=== PATIENT | male | born 1945 | race Caucasian/White ===

== ENCOUNTER 2022-12-26 09:11 | Inpatient (IN) | payer MEDICARE ==
[2022-12-26] MEDS ORDERED: MORPHINE SULFATE 2 MG/ML SYRINGE IVP STA (09:19)
[2022-12-26] MEDS ORDERED: KETOROLAC 15 MG/ML 1 ML VIAL IVP STA (09:19)
--- NOTE | 2022-12-26 09:25 | ED ---
Extremity Problem HPI - General Chief complaint: Extremity Problem,Nontraumatic Stated complaint: R Knee Pain Time Seen by Provider: 12/26/22 09:13 Source: patient, EMS, RN notes reviewed Mode of arrival: EMS Limitations: no limitations - History of Present Illness Initial comments: This is a 77-year-old male who presents to the emergency department for right knee pain. Patient states that this started around 5 days ago. Denies any known injuries. States that at this point he is unable to put pressure on leg due to the pain. He does have chronic swelling to the bilateral lower extremities, however he states that the swelling in the right leg is worse than normal. He is on Lasix and has been compliant with it. Reports a recent history of gout in the left great toe about a week ago, and states that it feels similar to the pain that he is having now. His brought with him the blood work obtained at [facility] about a week ago, and notable values are listed below. Denies any fevers, chills, sore throat, cough, dyspnea, chest pain, palpitations, abdominal pain, nausea, vomiting, diarrhea, back pain, or headaches. Lab work obtained at [facility] on 12/15/22: Uric acid - 16.0 WBC - 13.6 Hemoglobin - 6.3 Hematocrit - 20.4 Complaint: extremity pain Onset/Timin -: days(s) Location: right, lower extremity - Related Data Allergies Allergy/AdvReac Type Severity Reaction Status Date / Time No Known Allergies Allergy Verified 12/26/22 12:32 Review of Systems ROS Statement: Those systems with pertinent positive or pertinent negative responses have been documented in the HPI. ROS Other: All systems not noted in ROS Statement are negative. General Exam Limitations: no limitations General appearance: alert, in no apparent distress Head exam: Present: atraumatic, normocephalic, normal inspection Respiratory exam: Present: normal lung sounds bilaterally. Absent: respiratory distress, wheezes, rales, rhonchi, stridor Cardiovascular Exam: Present: regular rate, normal rhythm, normal heart sounds. Absent: systolic murmur, diastolic murmur, rubs, gallop, clicks Extremities exam: Present: other (Tenderness to palpation over the medial aspect of the right knee with 3+ pitting edema and mild erythema to the right lower extremity. 2+ DP and PT pulses. No calf tenderness.) Neurological exam: Present: alert, oriented X3, CN II-XII intact Psychiatric exam: Present: normal affect, normal mood Skin exam: Present: warm, dry, intact, normal color. Absent: rash Course Vital Signs 12/26/22 09:49 Temperature 98.9 F Pulse Rate 62 Respiratory 18 Rate Blood Pressure 125/58 O2 Sat by Pulse 92 L Oximetry Medical Decision Making - Medical Decision Making This is a 77-year-old male who presents to the emergency department for right knee pain. Was pt. sent in by a medical professional or institution? @ -No Did you speak to anyone other than the patient for history? @ -EMS provided the history with regards to when the pain started, that he is on Lasix, and has not had any injuries. His explained that he was at [facility] about a week ago for gout, she is unsure if he is receiving any active treatment. Did you review nursing and triage notes? @ -Yes, and I agree, it is accurate with regards to the patient's symptoms. Were old charts reviewed? @ -Lab work obtained at [facility] on 12/15/22: Uric acid - 16.0 WBC - 13.6 Hemoglobin - 6.3 Hematocrit - 20.4 Differential Diagnosis? @ -Differential Right Knee Pain: Fracture, dislocation, contusion, sprain, DVT, Sher's cyst, this is not meant to be an all-inclusive list. EKG interpreted by me (3pts min.)? @ -Not obtained X-rays interpreted by me (1pt min.)? @ -X-ray of the right knee obtained revealing a suprapatellar bursal fluid collection. CT interpreted by me (1pt min.)? @ -Not obtained U/S interpreted by me (1pt. min.)? @ -Duplex ultrasound of the right lower extremity obtained. My interpretation identifies no evidence of a DVT. What testing was considered but not performed? (CT, X-rays, U/S, labs)? Why? @ -None What meds were considered but not given? Why? @ -None Did you discuss the management of the patient with other professionals? @ -Yes, Dr. Silvestre, who accepts the patient for admission. Did you reconcile home meds? @ -No Was smoking cessation discussed for >3mins.? @ -No Was critical care preformed (if so, how long)? @ -No Were there social determinants of health that impacted care today? How? (Homelessness, low income, unemployed, alcoholism, drug addiction, transportation, low edu. Level, literacy, decrease access to med. care, senior care, rehab)? @ -No Was there de-escalation of care discussed even if they declined? (Discuss DNR or withdrawal of care, Hospice)? @ -No What co-morbidities impacted this encounter? (DM, HTN, Smoking, COPD, CAD, Cancer, CVA, Hep., AIDS, mental health diagnosis, sleep apnea, morbid obesity)? @ -CHF Was patient admitted / discharged? @ -Admitted. Lab work obtained revealing poor renal function, elevated CRP, and critically elevated uric acid with a level of 15.6. Leukocytosis and low hemoglobin are also present. Leukocytosis, low hemoglobin, and elevated uric acid are evident on blood work obtained at [facility] on 12/15, as listed in the HPI. However, renal function and CRP were not evaluated at that time. The patient was examined by both myself and Dr. Layton. He has notable tenderness to the right knee, however other than mild swelling, the knee is not particularly remarkable in terms of external irregularities. However, just distal to the knee there is diffuse swelling and erythema, suggestive of a possible cellulitis. X-ray of the right knee reveals a suprapatellar effusion, which may be the cause of his symptoms. Duplex ultrasound reveals no evidence of a DVT. Given that the patient is unable to ambulate, will admit patient to medicine for further evaluation. Orthopedics listed as consult regarding the knee pain and suprapatellar effusion. He was also started on vancomycin and cefepime for possible cellulitis. Consults placed for PT/OT as well. Undiagnosed new problem with uncertain prognosis? @ -None Drug Therapy requiring intensive monitoring for toxicity (Heparin, Nitro, Insu mark, Cardizem)? @ -None Were any procedures done? @ -None Diagnosis/symptom? @ -Right knee pain, suprapatellar effusion, cellulitis Acute, or Chronic, or Acute on Chronic? @ -Acute Uncomplicated (without systemic symptoms) or Complicated (systemic symptoms)? @ -Uncomplicated Side effects of treatment? @ -None Exacerbation, Progression, or Severe Exacerbation] @ -Not applicable Poses a threat to life or bodily function? @ -Yes, patient is unable to ambulate. This case was discussed in detail with the attending ED physician, Dr. Layton. Presentation, findings, and treatment plan discussed in detail as well. - Lab Data Result diagrams: 12/26/22 10:00 12/26/22 09:59 Lab Results 12/26/22 12/26/22 12/26/22 Range/Units 09:59 09:59 10:00 WBC 13.3 H (3.8-10.6) k/uL RBC 2.27 L (4.30-5.90) m/uL Hgb 7.4 L (13.0-17.5) gm/dL Hct 22.5 L (39.0-53.0) % MCV 99.3 (80.0-100.0) fL MCH 32.8 (25.0-35.0) pg MCHC 33.0 (31.0-37.0) g/dL RDW 19.2 H (11.5-15.5) % Plt Count 488 H (150-450) k/uL MPV 8.3 Neutrophils % (Manual) 61 % Band Neuts % (Manual) 7 % Lymphocytes % (Manual) 19 % Monocytes % (Manual) 5 % Metamyelocytes % 4 % Myelocytes % 5 % Neutrophils # (Manual) 9.00 H (1.3-7.7) k/uL Lymphocytes # (Manual) 2.53 (1.0-4.8) k/uL Monocytes # (Manual) 0.67 (0-1.0) k/uL Metamyelocytes # (Man) 0.53 H (0) k/uL Myelocytes # (Manual) 0.67 H (0) k/uL Nucleated RBCs 1 H (0-0) /100 WBC Manual Slide Review Performed Polychromasia Present Hypochromasia Slight Poikilocytosis Slight Anisocytosis Slight Macrocytosis Moderate Sodium 140 (137-145) mmol/L Potassium 4.2 (3.5-5.1) mmol/L Chloride 101 (98-107) mmol/L Carbon Dioxide 27 (22-30) mmol/L Anion Gap 12 mmol/L BUN 63 H (9-20) mg/dL Creatinine 2.13 H (0.66-1.25) mg/dL Est GFR (CKD-EPI)AfAm 34 (>60 ml/min/1.73 sqM) Est GFR (CKD-EPI)NonAf 29 (>60 ml/min/1.73 sqM) Glucose 111 H (74-99) mg/dL Plasma Lactic Acid Angel 0.9 (0.7-2.0) mmol/L Uric Acid 15.6 H* (3.5-8.5) mg/dL Calcium 8.6 (8.4-10.2) mg/dL Total Bilirubin 0.6 (0.2-1.3) mg/dL AST 35 (17-59) U/L ALT 33 (4-49) U/L Alkaline Phosphatase 101 (38-126) U/L C-Reactive Protein 6.2 H (<1.0) mg/dL Total Protein 6.8 (6.3-8.2) g/dL Albumin 4.0 (3.5-5.0) g/dL - Radiology Data Radiology results: report reviewed, image reviewed Disposition Clinical Impression: Cellulitis of right lower extremity, Right leg pain, Suprapatellar effusion of knee Disposition: ADMITTED IP TO THIS HOSP
--- NOTE | 2022-12-26 09:56 | XR ---
EXAMINATION TYPE: XR knee complete RT DATE OF EXAM: 12/26/2022 COMPARISON: NONE HISTORY: Pain TECHNIQUE: Three views are submitted. FINDINGS: Diffuse osteopenia with severe narrowing of the medial compartment of the knee joint. Spurring along the upper margin patella and there is a large suprapatellar bursal fluid collection.. Osseous struct ures are intact. No acute fracture seen. IMPRESSION: 1. Large suprapatellar bursal fluid collection. No definite acute fracture. 2. Severe diffuse osteopenia with severe osteoarthritis.
[2022-12-26 10:23] LABS: ALT 33 U/L (4-49); AST 35 U/L (17-59); African American GFR (CKD) 34 (>60 ml/min/1.73 sqM); Alkaline Phosphatase 101 U/L (38-126); Anion Gap 12 mmol/L; Blood Urea Nitrogen 63 mg/dL (9-20); Calcium 8.6 mg/dL (8.4-10.2); Carbon Dioxide 27 mmol/L (22-30); Chloride 101 mmol/L (98-107); Glucose 111 mg/dL (74-99); Non-African American GFR(CKD) 29 (>60 ml/min/1.73 sqM); Potassium 4.2 mmol/L (3.5-5.1); Sodium 140 mmol/L (137-145); Total Bilirubin 0.6 mg/dL (0.2-1.3); Total Protein 6.8 g/dL (6.3-8.2)
[2022-12-26 10:39] LABS: Uric Acid 15.6 mg/dL (3.5-8.5)
[2022-12-26 10:54] LABS: C Reactive Protein 6.2 mg/dL (<1.0)
[2022-12-26 11:07] LABS: Anisocytosis Slight; HCT 22.5 % (39.0-53.0); HGB 7.4 gm/dL (13.0-17.5); Hypochromasia Slight; MCH 32.8 pg (25.0-35.0); MCV 99.3 fL (80.0-100.0); Macrocytosis Moderate; Mean Platelet Volume 8.3; Platelet Count 488 k/uL (150-450); Poikilocytosis Slight; RBC 2.27 m/uL (4.30-5.90); RDW 19.2 % (11.5-15.5)
[2022-12-26] MEDS ORDERED: MORPHINE SULFATE 4 MG/ML SYRINGE IVP STA (11:08)
--- NOTE | 2022-12-26 11:22 | US ---
EXAMINATION TYPE: US venous doppler duplex LE RT DATE OF EXAM: 12/26/2022 9:20 AM COMPARISON: NONE CLINICAL INDICATION: Male, 77 years old with history of Right leg pain and swelling; Right lower leg swelling, patient on blood thinners SIDE PERFORMED: Right TECHNIQUE: The lower extremity deep venous system is examined utilizing real time linear array sonog sara with graded compression, doppler sonography and color-flow sonography. VESSELS IMAGED: Common Femoral Vein Deep Femoral Vein Greater Saphenous Vein * Femoral Vein Popliteal Vein Small Saphenous Vein * Proximal Calf Veins (* superficial vessels) Right Leg: Appears negative for DVT IMPRESSION: Grayscale, color doppler, spectral doppler imaging performed of the deep veins of the lo wer extremities. There is normal flow, compressibility, vascular waveforms.
[2022-12-26 11:28] LABS: Band Neutrophils % 7 %; Lymphocytes # (M) 2.53 k/uL (1.0-4.8); Metamyelocytes # (M) 0.53 k/uL (0); Metamyelocytes % 4 %; Monocytes # (M) 0.67 k/uL (0-1.0); Myelocytes # (M) 0.67 k/uL (0); Myelocytes % 5 %; Neutrophils % (M) 61 %; Nucleated Red Blood Cells 1 /100 WBC (0-0); Polychromasia Present; Total Cells Counted 200; WBC 13.3 k/uL (3.8-10.6)
[2022-12-26] MEDS ORDERED: CEFEPIME 1 GM in SODIUM CHLORIDE 0.9% 50 ML IVPB STA (11:45)
[2022-12-26] MEDS ORDERED: VANCOMYCIN IV PER PHARMACY 1 EACH MISC MISCELLANE PRN (11:45)
[2022-12-26] MEDS ORDERED: NALOXONE 0.4 MG/ML 1 ML VIAL IV PRN (11:46)
[2022-12-26] MEDS ORDERED: MORPHINE SULFATE 4 MG/ML SYRINGE IV PRN (11:46)
[2022-12-26] MEDS ORDERED: ONDANSETRON 4 MG/2 ML VIAL IVP PRN (11:46)
[2022-12-26] MEDS ORDERED: ACETAMINOPHEN TAB 325 MG TAB PO PRN (11:46)
[2022-12-26] MEDS ORDERED: VANCOMYCIN 1,250 MG in SODIUM CHLORIDE 0.9% 250 ML IVPB ONE (12:00)
[2022-12-26] MEDS ORDERED: DEXTROSE 50% SYRINGE 50 ML IVP PRN ×2 (17:43)
[2022-12-26] MEDS: SILDENAFIL 20 MG TAB PO SCH (18:45)
[2022-12-26] MEDS: MIDODRINE 5 MG TAB PO SCH (18:45)
[2022-12-26] MEDS: HEPARIN SODIUM,PORCINE/PF 5,000 UNIT/0.5 ML SYRINGE SQ SCH (18:45)
--- NOTE | 2022-12-26 18:45 | P.HPIM ---
History of Present Illness This is a pleasant 77 years old male with no significant past medical history Presents because of right knee pain. Patient cannot sleep walk or function with his significant pain which he states was 10/10 also made on admission non specific. Patient denies history of trauma. Patient denies any other specific symptoms, no chest pain dyspnea. No other symptom. Patient denies smoking alcohol or illicit drugs Vitals stable and afebrile Has leukocytosis 13.3, hemoglobin 7.4 Alk phos are normal. Creatinine 2.1 uric acid elevated at 15.6 Liver enzymes unremarkable. Venous Dopplers negative for DVT Right knee x-ray showing large suprapatellar bursa fluid collection. No definite acute fracture. Severe diffuse osteopenia with severe osteoarthritis Review of Systems Review of systems CONSTITUTIONAL: No fever, no malaise, no fatigue. HEENT: No recent visual problems or hearing problems. Denied any sore throat. CARDIOVASCULAR: No orthopnea, PND, no palpitations, no syncope. PULMONARY: No shortness of breath, no cough, no hemoptysis. GASTROINTESTINAL: No diarrhea, no nausea, no vomiting, no abdominal pain. Normoactive bowel sounds. NEUROLOGICAL: No headaches, no weakness, no numbness. HEMATOLOGICAL: Denies any bleeding or petechiae. GENITOURINARY: Denies any burning micturition, frequency, or urgency. MUSCULOSKELETAL/RHEUMATOLOGICAL: Denies any joint pain, swelling, or any muscle pain. ENDOCRINE: Denies any polyuria or polydipsia. Past Medical History History of Any Multi-Drug Resistant Organisms: None Reported Past Surgical History: Pacemaker Past Psychological History: No Psychological Hx Reported Smoking Status: Never smoker Past Alcohol Use History: None Reported Past Drug Use History: None Reported - Past Family History Mother Family Medical History: Cancer Father Family Medical History: Cancer Medications and Allergies Home Medications Medication Instructions Recorded Confirmed Type Amoxic-Pot Clav 500-125 mg 1 tab PO Q12HR 12/26/22 12/26/22 History [Augmentin 500-125 mg] Apixaban [Eliquis] 2.5 mg PO BID@1100,2300 12/26/22 12/26/22 History Dapagliflozin Propanediol [Farxiga] 10 mg PO DAILY 12/26/22 12/26/22 History Levothyroxine Sodium [Synthroid] 125 mcg PO QAM 12/26/22 12/26/22 History Melatonin 3 mg PO HS@0030 12/26/22 12/26/22 History Midodrine HCl [ProAmatine] 10 mg PO TID@0030,1000,1800 12/26/22 12/26/22 History Sildenafil Citrate 20 mg PO TID@0030,1000,1800 12/26/22 12/26/22 History Sotalol [Betapace] 40 mg PO BID@1100,2300 12/26/22 12/26/22 History Torsemide [Demadex] 40 mg PO BID@1100,2300 12/26/22 12/26/22 History traZODone HCL 100 mg PO HS@0030 12/26/22 12/26/22 History Allergies Allergy/AdvReac Type Severity Reaction Status Date / Time No Known Allergies Allergy Verified 12/26/22 12:32 Physical Exam Vitals: Vital Signs Temp Pulse Resp BP Pulse Ox 12/26/22 09:49 98.9 F 62 18 125/58 92 L Intake and Output 12/25/22 12/26/22 12/26/22 22:59 06:59 14:59 Other: Weight 64.41 kg GENERAL: The patient is alert and oriented x3, not in any acute distress. Well developed, well nourished. HEENT: Pupils are round and equally reacting to light. EOMI. No scleral icterus. No conjunctival pallor. Normocephalic, atraumatic. No pharyngeal erythema. No thyromegaly. CARDIOVASCULAR: S1 and S2 present. No murmurs, rubs, or gallops. PULMONARY: Chest is clear to auscultation, no wheezing , no crackles. ABDOMEN: Soft, nontender, nondistended, normoactive bowel sounds. No palpable organomegaly. MUSCULOSKELETAL: No joint swelling or deformity. -EXTREMITIES: No cyanosis, clubbing, or pedal edema. Tender Swelling and fullness above the right knee with no erythema. Right lower extremity is swollen warm and tender, but no erythema. NEUROLOGICAL: Gross neurological examination did not reveal any focal deficits. SKIN: No rashes. no petechiae. Results CBC & Chem 7: 12/26/22 10:00 12/26/22 09:59 Labs: Abnormal Lab Results - Last 24 Hours (Table) 12/26/22 12/26/22 Range/Units 09:59 10:00 WBC 13.3 H (3.8-10.6) k/uL RBC 2.27 L (4.30-5.90) m/uL Hgb 7.4 L (13.0-17.5) gm/dL Hct 22.5 L (39.0-53.0) % RDW 19.2 H (11.5-15.5) % Plt Count 488 H (150-450) k/uL Neutrophils # (Manual) 9.00 H (1.3-7.7) k/uL Metamyelocytes # (Man) 0.53 H (0) k/uL Myelocytes # (Manual) 0.67 H (0) k/uL Nucleated RBCs 1 H (0-0) /100 WBC BUN 63 H (9-20) mg/dL Creatinine 2.13 H (0.66-1.25) mg/dL Glucose 111 H (74-99) mg/dL Uric Acid 15.6 H* (3.5-8.5) mg/dL C-Reactive Protein 6.2 H (<1.0) mg/dL Assessment and Plan Assessment: Acute right knee suprapatellar bursitis possible right Lower extremity cellulitis Acute kidney injury, unknown baseline Elevated uric acid Normochromic normocytic anemia Plan: Continue with pain management Continue with antibiotic, currently on cefazolin and vancomycin Infectious disease and orthopedic team consult Follow-up culture result Check inflammatory markers Lexaprocalcitonin and CRP. Labs and medication were reviewed.. Continue same treatment. Continue with symptomatic treatment. Resume home medication. Monitor labs and vitals. DVT and GI prophylaxis. Further recommendations as per clinical course of the patient DVT prophylaxis: Subcutaneous heparin GI Prophylaxis: Pepcid PT/OT: Pending Prognosis is guarded
--- NOTE | 2022-12-26 19:55 | XR ---
EXAMINATION TYPE: XR chest 2V DATE OF EXAM: 12/26/2022 7:27 PM COMPARISON: None TECHNIQUE: XR chest 2V Frontal and lateral views of the chest. CLINICAL INDICATION:Male, 77 years old with history of hypoxia; FINDINGS: Lungs/Pleura: Low lung volumes are present. There is no evidence of pleural effusion, focal consolida tion, or pneumothorax. Pulmonary vascularity: Unremarkable. Heart/mediastinum: Cardiomediastinal silhouette is enlarged and stable. Two lead cardiac conduction d evice overlying the left hemithorax with lead tips projecting over the right ventricle and right atri um. Musculoskeletal: No acute osseous pathology. IMPRESSION: Low lung volumes with a generalized hazy appearance which could represent atelectasis versus pulmonar y edema correlate with serum BNP.
[2022-12-26] MEDS: INSULIN ASPART (NovoLOG) 100 UNIT/ML VIAL SQ SCH (20:54)
[2022-12-26] MEDS: SOTALOL 80 MG TAB PO SCH (20:57)
[2022-12-26] MEDS ORDERED: FAMOTIDINE 20 MG/2 ML VIAL IV SCH (21:00)
[2022-12-26] MEDS: HYDROcodone/APAP 5-325MG 1 EACH TAB PO PRN (21:05)
--- NOTE | 2022-12-26 22:59 | P.CONS ---
History of Present Illness - Reason for Consult Consult date: 12/26/22 - History of Present Illness Patient is a 77-year-old male with a past medical history significant for arrhythmia s/p pacemaker placement presenting to the hospital for evaluation of increasing pain to the right knee area patient denies any history of any trauma, patient described the pain to be sharp almost 10 out of 10 in severity with no significant radiation also have some swelling redness to the right foot and ankle area patient denies any fever or any chills with the symptoms the patient has been evaluated by the ER physician on arrival to the ER the patient was afebrile and no fever has been recorded subsequently patient did have a white count of 13.3 with a left shift he did have elevated BUN and creatinine uric acid 15.6 CRP 6.2 Pro-Alfonzo 0.18 patient did have a x-ray of the knee large suprapatellar bursa. Fluid collection no definite acute fracture severe diffuse osteopenia with severe osteoarthritis lower extremity Doppler was negative for DVT the patient was started on vancomycin, Ortho has been consulted for possible aspirate infectious was consulted concern for right lower extremity cellulitis Past Medical History Past Medical History: Atrial Fibrillation, Blood Disorder, Coronary Artery Disease (CAD), Cancer, Heart Failure, Osteoarthritis (OA), Renal Disease, Thyroid Disorder Additional Past Medical History / Comment(s): chemo[facility]radiation 2018 [facility] essential thrombocytopenia History of Any Multi-Drug Resistant Organisms: None Reported Past Surgical History: Heart Catheterization, Pacemaker Additional Past Surgical History / Comment(s): 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 Past Anesthesia/Blood Transfusion Reactions: No Reported Reaction Type of Cardiac Device: Permanent Pacemaker Device Placement Date:: 05/2022 Past Psychological History: No Psychological Hx Reported Smoking Status: Former smoker Past Alcohol Use History: Occasional Past Drug Use History: None Reported - Past Family History Mother Family Medical History: Cancer Father Family Medical History: Cancer Medications and Allergies Home Medications Medication Instructions Recorded Confirmed Type Amoxic-Pot Clav 500-125 mg 1 tab PO Q12HR 12/26/22 12/26/22 History [Augmentin 500-125 mg] Apixaban [Eliquis] 2.5 mg PO BID@1100,2300 12/26/22 12/26/22 History Dapagliflozin Propanediol [Farxiga] 10 mg PO DAILY 12/26/22 12/26/22 History Levothyroxine Sodium [Synthroid] 125 mcg PO QAM 12/26/22 12/26/22 History Melatonin 3 mg PO HS@0030 12/26/22 12/26/22 History Midodrine HCl [ProAmatine] 10 mg PO TID@0030,1000,1800 12/26/22 12/26/22 History Sildenafil Citrate 20 mg PO TID@0030,1000,1800 12/26/22 12/26/22 History Sotalol [Betapace] 40 mg PO BID@1100,2300 12/26/22 12/26/22 History Torsemide [Demadex] 40 mg PO BID@1100,2300 12/26/22 12/26/22 History traZODone HCL 100 mg PO HS@0030 12/26/22 12/26/22 History Allergies Allergy/AdvReac Type Severity Reaction Status Date / Time No Known Allergies Allergy Verified 12/26/22 12:32 Physical Exam Vitals: Vital Signs Temp Pulse Resp BP Pulse Ox 12/26/22 09:49 98.9 F 62 18 125/58 92 L Intake and Output 12/26/22 12/26/22 12/26/22 06:59 14:59 22:59 Intake Total 540 Output Total 200 Balance 340 Intake: Intake, IV Titration 300 Amount Cefepime 1 gm In Sodium 50 Chloride 0.9% 50 ml @ 100 mls/hr IVPB ONCE STA Rx# :[id number] Vancomycin 1,250 mg In 250 Sodium Chloride 0.9% 250 ml @ 125 mls/hr IVPB ONCE ONE Rx#:[id number] Oral 240 Output: Urine 200 Other: Weight 64.41 kg 64.41 kg Results CBC & Chem 7: 12/26/22 10:00 12/26/22 09:59 Labs: Abnormal Lab Results - Last 24 Hours (Table) 12/26/22 12/26/22 12/26/22 Range/Units 09:49 09:59 10:00 WBC 13.3 H (3.8-10.6) k/uL RBC 2.27 L (4.30-5.90) m/uL Hgb 7.4 L (13.0-17.5) gm/dL Hct 22.5 L (39.0-53.0) % RDW 19.2 H (11.5-15.5) % Plt Count 488 H (150-450) k/uL Neutrophils # (Manual) 9.00 H (1.3-7.7) k/uL Metamyelocytes # (Man) 0.53 H (0) k/uL Myelocytes # (Manual) 0.67 H (0) k/uL Nucleated RBCs 1 H (0-0) /100 WBC BUN 63 H (9-20) mg/dL Creatinine 2.13 H (0.66-1.25) mg/dL Glucose 111 H (74-99) mg/dL Uric Acid 15.6 H* (3.5-8.5) mg/dL C-Reactive Protein 6.2 H (<1.0) mg/dL Procalcitonin 0.18 H (0.02-0.09) ng/mL Assessment and Plan Plan: 1patient was in the hospital increasing pain to the right knee this patient also with a right foot ankle area swelling and minimal redness concerning for cellulitis and possible bursitis questionably septic patient not running any fever however he did have mild elevated white count, we will need to cover for the gram-positive skin phillip to the leg pathogen 2patient did have renal insufficiency and high risk for nephrotoxicity from vancomycin 3discontinue vancomycin 4we will start patient on cefazolin 2 g every 8 hours 5Ace wrap to the leg to keep the swelling down We will follow on clinical condition and cultures to further adjust medication if needed Thank you for this consultation we will follow the patient along with you Dictation was produced using [employer] dictation software. please excuse any grammatical, word or spelling errors. Time with Patient: Greater than 30
[2022-12-27] MEDS: predniSONE 10 MG TAB PO SCH ×2 (00:01→08:42)
[2022-12-27] MEDS: HEPARIN SODIUM,PORCINE/PF 5,000 UNIT/0.5 ML SYRINGE SQ SCH ×2 (00:01→08:35)
[2022-12-27] MEDS: MIDODRINE 5 MG TAB PO SCH ×4 (00:01→23:59)
[2022-12-27] MEDS: SILDENAFIL 20 MG TAB PO SCH ×4 (00:01→23:59)
[2022-12-27] MEDS: traZODone HCL 100 MG TAB PO SCH ×2 (00:01→23:59)
[2022-12-27] MEDS: MELATONIN 3 MG TABLET PO SCH ×2 (00:01→23:59)
[2022-12-27] MEDS: HYDROcodone/APAP 5-325MG 1 EACH TAB PO PRN ×3 (04:17→20:11)
[2022-12-27] MEDS: LEVOTHYROXINE 125 MCG TAB PO SCH (05:57)
[2022-12-27] MEDS: INSULIN ASPART (NovoLOG) 100 UNIT/ML VIAL SQ SCH ×4 (05:58→21:19)
[2022-12-27] MEDS: SOTALOL 80 MG TAB PO SCH ×2 (08:35→20:02)
[2022-12-27] MEDS: DAPAGLIFLOZIN PROPANEDIOL 10 MG TABLET PO SCH (08:37)
--- NOTE | 2022-12-27 11:09 | CA ---
Transthoracic Echo Report Name: Arjun Olmedo Age: 77 Gender: M : 1945 Exam Date: 12/27/2022 07:50 Exam Location: [facility] Ht (in): 74 Wt (lb): 142 Ordering Physician: Pal Silvestre MD Attending/Referring Phys: [id number], Nirm[employer] Tiffany Renee, [facility] Procedure CPT: Indications: Leg edema Cardiac Hx: Technical Quality: Good Contrast 1: Total Dose (mL): Contrast 2: Total Dose (mL): MEASUREMENTS (Male / Female) Normal Values 2D ECHO LV Diastolic Diameter PLAX 5.1 cm 4.2 - 5.9 / 3.9 - 5.3 cm LV Systolic Diameter PLAX 2.9 cm IVS Diastolic Thickness 0.8 cm 0.6 - 1.0 / 0.6 - 0.9 cm LVPW Diastolic Thickness 0.9 cm 0.6 - 1.0 / 0.6 - 0.9 cm LV Relative Wall Thickness 0.3 RV Internal Dim ED PLAX 4.5 cm LA Systolic Diameter LX 4.5 cm 3.0 - 4.0 / 2.7 - 3.8 cm LV Diastolic Volume MOD 4C 98.9 cm??? LV Systolic Volume MOD 4C 25.8 cm??? LV Ejection Fraction MOD 4C 73.9 % LV Cardiac Index MOD 4C 2732.8 cm???/min???m??? LV Diastolic Length 4C 7.8 cm LV Systolic Length 4C 6.0 cm LV Diastolic Volume MOD 2C 48.3 cm??? LV Systolic Volume MOD 2C 20.2 cm??? LV Ejection Fraction MOD 2C 58.3 % LV Cardiac Index MOD 2C 1055.2 cm???/min???m??? LV Diastolic Length 2C 7.4 cm LV Systolic Length 2C 5.9 cm LA Volume 67.6 cm??? 18 - 58 / 22 - 52 cm??? M-MODE Aortic Root Diameter MM 3.6 cm MV E Point Septal Separation 1.5 cm DOPPLER AV Peak Velocity 117.8 cm/s AV Peak Gradient 5.6 mmHg MV Area PHT 2.5 cm??? Mitral E Point Velocity 124.1 cm/s Mitral A Point Velocity 87.9 cm/s Mitral E to A Ratio 1.4 MV Deceleration Time 303.3 ms TR Peak Velocity 379.5 cm/s TR Peak Gradient 57.6 mmHg Right Ventricular Systolic Press 62.1 mmHg FINDINGS Left Ventricle Left ventricular ejection fraction is estimated at 55-60 %. Left ventricular cavity size normal. Left ventricular wall thickness normal.normal left ventricular wall motion. Right Ventricle Severe right ventricular dilatation. Severe pulmonary hypertension. Right Atrium Normal right atrial size. Left Atrium Mildly increased left atrial diameter. Mildly increased left atrial volume. Mitral Valve Mitral valve thickened. Mild mitral annular calcification. Mild mitral regurgitation Aortic Valve Trileaflet aortic valve. No aortic valve stenosis or regurgitation.aortic valve sclerosis. Tricuspid Valve Structurally normal tricuspid valve. Moderate tricuspid regurgitation. Pulmonic Valve Structurally normal pulmonic valve. Pericardium Small pericardial effusion at apex Aorta Normal size aortic root and proximal ascending aorta. CONCLUSIONS 1. Normal left ventricle size and systolic function 2. Mild mitral and moderate tricuspid regurgitation 3. Severe pulmonary hypertension 4. Small pericardial effusion Previewed by: Dr. Rachel Yoder MD (Electronically Signed) Final Date: 27 December 2022 11:09
[2022-12-27 11:37] LABS: Glucose,Whole Blood 153 mg/dL (70-110)
[2022-12-27] MEDS ORDERED: VANCOMYCIN 1,250 MG in SODIUM CHLORIDE 0.9% 250 ML IVPB ONE (12:00)
--- NOTE | 2022-12-27 12:04 | P.CNOR ---
History of Present Illness - HPI Consult date: 12/27/22 History of present illness: This is a 77-year-old male who is admitted for right knee pain. Orthopedics is consulted for further evaluation right knee pain. Patient is seen and evaluated at bedside today. Patient states that the pain started 5 days ago without any known injury. Patient states that he has had pain in the right knee before, but not this bad. Patient localizes pain to the medial aspect of the right knee. Patient states that he has pain with attempted motion of the right knee. Patient reports a recent episode of gout in the left toe. Patient's past medical history is significant for atrial fibrillation, thrombocytopenia, coronary artery disease, heart failure, osteoarthritis, renal disease, thyroid disorder and history of tongue cancer. Review of Systems See HPI. Past Medical History Past Medical History: Atrial Fibrillation, Blood Disorder, Coronary Artery Disease (CAD), Cancer, Heart Failure, Osteoarthritis (OA), Renal Disease, Thyro id Disorder Additional Past Medical History / Comment(s): chemo/radiation 2018 ([facility]), essential thrombocytopenia History of Any Multi-Drug Resistant Organisms: None Reported Past Surgical History: Heart Catheterization, Pacemaker Additional Past Surgical History / Comment(s): 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 Past Anesthesia/Blood Transfusion Reactions: No Reported Reaction Type of Cardiac Device: Permanent Pacemaker Device Placement Date:: 05/2022 Past Psychological History: No Psychological Hx Reported Smoking Status: Former smoker Past Alcohol Use History: Occasional Past Drug Use History: None Reported - Past Family History Mother Family Medical History: Cancer Father Family Medical History: Cancer Medications and Allergies Home Medications Medication Instructions Recorded Confirmed Type Amoxic-Pot Clav 500-125 mg 1 tab PO Q12HR 12/26/22 12/26/22 History [Augmentin 500-125 mg] Apixaban [Eliquis] 2.5 mg PO BID@1100,2300 12/26/22 12/26/22 History Dapagliflozin Propanediol [Farxiga] 10 mg PO DAILY 12/26/22 12/26/22 History Levothyroxine Sodium [Synthroid] 125 mcg PO QAM 12/26/22 12/26/22 History Melatonin 3 mg PO HS@0030 12/26/22 12/26/22 History Midodrine HCl [ProAmatine] 10 mg PO TID@0030,1000,1800 12/26/22 12/26/22 History Sildenafil Citrate 20 mg PO TID@0030,1000,1800 12/26/22 12/26/22 History Sotalol [Betapace] 40 mg PO BID@1100,2300 12/26/22 12/26/22 History Torsemide [Demadex] 40 mg PO BID@1100,2300 12/26/22 12/26/22 History traZODone HCL 100 mg PO HS@0030 12/26/22 12/26/22 History Allergies Allergy/AdvReac Type Severity Reaction Status Date / Time No Known Allergies Allergy Verified 12/26/22 12:32 Physical Examination On exam patient is resting comfortably in bed in no acute distress. Patient is alert and oriented 3. There is mild swelling of the right knee. There is no erythema or ecchymosis. Skin is intact. There is pain and limitation with active and passive range of motion of the right knee. There is moderate swelling of the right lower extremity. Sensation is intact. Calf is soft and nontender to palpation. Neurovascular status circulatory status are intact. Results X-rays of the right knee reveal severe thinning of the medial joint space. - Labs Labs: Abnormal Lab Results - Last 24 Hours (Table) 12/26/22 12/26/22 12/26/22 Range/Units 09:49 09:59 10:00 WBC 13.3 H (3.8-10.6) k/uL RBC 2.27 L (4.30-5.90) m/uL Hgb 7.4 L (13.0-17.5) gm/dL Hct 22.5 L (39.0-53.0) % RDW 19.2 H (11.5-15.5) % Plt Count 488 H (150-450) k/uL Neutrophils # (Manual) 9.00 H (1.3-7.7) k/uL Metamyelocytes # (Man) 0.53 H (0) k/uL Myelocytes # (Manual) 0.67 H (0) k/uL Nucleated RBCs 1 H (0-0) /100 WBC BUN 63 H (9-20) mg/dL Creatinine 2.13 H (0.66-1.25) mg/dL Glucose 111 H (74-99) mg/dL Uric Acid 15.6 H* (3.5-8.5) mg/dL C-Reactive Protein 6.2 H (<1.0) mg/dL Procalcitonin 0.18 H (0.02-0.09) ng/mL H & H 12/26/22 Range/Units 10:00 Hgb 7.4 L (13.0-17.5) gm/dL Hct 22.5 L (39.0-53.0) % Result Diagrams: 12/26/22 10:00 12/26/22 09:59 Assessment and Plan (1) Right knee pain Current Visit: Yes Status: Acute Code(s): M25.561 - PAIN IN RIGHT KNEE SNOMED Code(s): 4568283645 (2) Osteoarthritis of right knee Current Visit: Yes Status: Acute Code(s): M17.11 - UNILATERAL PRIMARY OSTEOARTHRITIS, RIGHT KNEE SNOMED Code(s): 340504024752007 Plan: 1. X-rays of the right knee are reviewed revealing severe osteoarthritis. These findings are consistent with the patient's symptoms of knee pain. Patient is afebrile and from exam of the right knee there is a very low suspicion for infection. 2. The patient may benefit from cortisone injection for the right knee. We will continue to follow.
--- NOTE | 2022-12-27 12:06 | P.PN ---
Subjective This is a pleasant 77 years old male with no significant past medical history Presents because of right knee pain. Patient cannot sleep walk or function with his significant pain which he states was 10/10 also made on admission nonspecific. Patient denies history of trauma. Patient denies any other specific symptoms, no chest pain dyspnea. No other symptom. Patient denies smoking alcohol or illicit drugs Vitals stable and afebrile Has leukocytosis 13.3, hemoglobin 7.4 Alk phos are normal. Creatinine 2.1 uric acid elevated at 15.6 Liver enzymes unremarkable. Venous Dopplers negative for DVT Right knee x-ray showing large suprapatellar bursa fluid collection. No definite acute fracture. Severe diffuse osteopenia with severe osteoarthritis 12/27/2022 Patient right knee pain is better today, right knee still looks swollen and somewhat warm. Right leg edema is improving. Suspicion for right lower extremity cellulitis is low. However patient To be covered with IV antibiotic There was suspicion of CHF. Her chest x-ray with elevated proBNP 45106. Echocardiogram showed preserved ejection fraction 55-60% with severe pulmonary hypertension. Patient currently off IV fluids. Uric acid was elevated significantly up to 15 suspicious for acute gout flareup because of elevated creatinine patient was started on prednisone 30 mg. Labs from today are pending. We will follow up creatinine, WBC, hemoglobin and uric acid which are still pending. Hemoglobin A1c and procalcitonin still pending as well. Review of systems CONSTITUTIONAL: No fever, no malaise, no fatigue. HEENT: No recent visual problems or hearing problems. Denied any sore throat. CARDIOVASCULAR: No orthopnea, PND, no palpitations, no syncope. PULMONARY: No shortness of breath, no cough, no hemoptysis. GASTROINTESTINAL: No diarrhea, no nausea, no vomiting, no abdominal pain. Normoactive bowel sounds. NEUROLOGICAL: No headaches, no weakness, no numbness. HEMATOLOGICAL: Denies any bleeding or petechiae. GENITOURINARY: Denies any burning micturition, frequency, or urgency. Active Medications Generic Name Dose Route Start Last Admin Trade Name Freq PRN Reason Stop Dose Admin Acetaminophen 650 mg 12/26/22 11:46 Acetaminophen Tab 325 Mg Tab PO Q6HR PRN Mild Pain or Fever > 100.5 Hydrocodone Bitart/Acetaminophen 1 each 12/26/22 11:46 12/27/22 08:34 Hydrocodone/Apap 5-325mg 1 Each Tab PO 1 each Q4HR PRN Administration Moderate Pain (Scale 4 to 6) Dapagliflozin 10 mg 12/27/22 09:00 12/27/22 08:37 Dapagliflozin Propanediol 10 Mg Tablet PO 10 mg DAILY [facility] Administration Dextrose/Water 25 ml 12/26/22 17:43 Dextrose 50% Syringe 50 Ml IVP PER PROTOCOL PRN Hypoglycemia Protocol Dextrose/Water 50 ml 12/26/22 17:43 Dextrose 50% Syringe 50 Ml IVP PER PROTOCOL PRN Hypoglycemia Protocol Famotidine 20 mg 12/26/22 21:00 12/26/22 20:58 Famotidine 20 Mg/2 Ml Vial IV Not Given HS [facility] Heparin Sodium (Porcine) 5,000 unit 12/26/22 18:00 12/27/22 08:35 Heparin Sodium,Porcine/Pf 5,000 Unit/0.5 Ml Syringe SQ 5,000 unit Q8HR [facility] Administration Cefazolin Sodium 2 gm/ Sodium 50 mls @ 100 mls/hr 12/27/22 00:00 12/27/22 08:34 Chloride IVPB 100 mls/hr Q8HR [facility] Administration Protocol Insulin Aspart 0 unit 12/26/22 21:00 12/27/22 11:27 Insulin Aspart (Novolog) 100 Unit/Ml Vial SQ 1 unit ACHS [facility] Administration Protocol Levothyroxine Sodium 125 mcg 12/27/22 06:30 12/27/22 05:57 Levothyroxine 125 Mcg Tab PO 125 mcg 0630 [facility] Administration Melatonin 3 mg 12/27/22 00:30 12/27/22 00:01 Melatonin 3 Mg Tablet PO 3 mg HS@0030 [facility] Administration Midodrine 10 mg 12/26/22 18:00 12/27/22 08:38 Midodrine 5 Mg Tab PO 10 mg TID@0030,1000,1800 [facility] Administration Naloxone HCl 0.2 mg 12/26/22 11:46 Naloxone 0.4 Mg/Ml 1 Ml Vial IV Q2M PRN Opioid Reversal Ondansetron HCl 4 mg 12/26/22 11:46 Ondansetron 4 Mg/2 Ml Vial IVP Q8HR PRN Nausea And Vomiting Prednisone 30 mg 12/26/22 23:45 12/27/22 08:42 Prednisone 10 Mg Tab PO 30 mg DAILY [facility] Administration Sildenafil Citrate 20 mg 12/26/22 18:00 12/27/22 08:38 Sildenafil 20 Mg Tab PO 20 mg TID@0030,1000,1800 [facility] Administration Sotalol HCl 40 mg 12/26/22 23:00 12/27/22 08:35 Sotalol 80 Mg Tab PO 40 mg BID@1100,2300 [facility] Administration Trazodone HCl 100 mg 12/27/22 00:30 12/27/22 00:01 Trazodone Hcl 100 Mg Tab PO 100 mg HS@0030 [facility] Administration Objective - Vital Signs Vital signs: Vital Signs Temp 97.8 F 12/27/22 07:26 Pulse 58 L 12/27/22 07:26 Resp 16 12/27/22 07:26 BP 92/54 12/27/22 07:26 Pulse Ox 94 L 12/27/22 07:26 FiO2 Intake & Output 12/26/22 12/27/22 12/27/22 18:59 06:59 18:59 Intake Total 540 170 Output Total 200 575 Balance 340 -575 170 Weight 64.41 kg Intake: Intake, IV Titration 300 50 Amount Cefepime 1 gm In Sodium 50 Chloride 0.9% 50 ml @ 100 mls/hr IVPB ONCE STA Rx# :[id number] Vancomycin 1,250 mg In 250 Sodium Chloride 0.9% 250 ml @ 125 mls/hr IVPB ONCE ONE Rx#:[id number] ceFAZolin 2 gm In Sodium 50 Chloride 0.9% 50 ml @ 100 mls/hr IVPB Q8HR [facility] Rx# :[id number] Oral 240 120 Output: Urine 200 575 Other: # Voids 1 - Exam GENERAL: The patient is alert and oriented x3, not in any acute distress. Well developed, well nourished. HEENT: Pupils are round and equally reacting to light. EOMI. No scleral icterus. No conjunctival pallor. Normocephalic, atraumatic. No pharyngeal erythema. No thyromegaly. CARDIOVASCULAR: S1 and S2 present. No murmurs, rubs, or gallops. PULMONARY: Chest is clear to auscultation, no wheezing , no crackles. ABDOMEN: Soft, nontender, nondistended, normoactive bowel sounds. No palpable organomegaly. MUSCULOSKELETAL: No joint swelling or deformity. -EXTREMITIES: No cyanosis, clubbing,. Mild bilateral leg edema. Right knee is swollen and warm with no erythema or wound NEUROLOGICAL: Gross neurological examination did not reveal any focal deficits. SKIN: No rashes. no petechiae. - Labs CBC & Chem 7: 12/26/22 10:00 12/26/22 09:59 Labs: Abnormal Lab Results - Last 24 Hours (Table) 12/26/22 12/27/22 Range/Units 09:49 11:21 POC Glucose (mg/dL) 153 H (70-110) mg/dL Procalcitonin 0.18 H (0.02-0.09) ng/mL Assessment and Plan Assessment: Acute right knee suprapatellar bursitis possible right Lower extremity cellulitis Acute kidney injury, unknown baseline Elevated uric acid Normochromic normocytic anemia Severe pulmonary hypertension Plan: Continue with pain management Continue with antibiotic, currently on cefazolin Infectious disease and orthopedic team consult Follow-up culture result Check inflammatory markers procalcitonin and CRP. Continue with the prednisone 30 mg for possible gout flareup Labs and medication were reviewed.. Continue same treatment. Continue with symptomatic treatment. Resume home medication. Monitor labs and vitals. DVT and GI prophylaxis. Further recommendations as per clinical course of the patient DVT prophylaxis: Subcutaneous heparin GI Prophylaxis: Pepcid PT/OT: Pending Prognosis is guarded
[2022-12-27 12:10] LABS: BUN/Creat Ratio 26.22 Ratio (12.00-20.00); Blood Urea Nitrogen 60.3 mg/dL (9.0-27.0); Calcium 8.2 mg/dL (8.7-10.3); Carbon Dioxide 20.8 mmol/L (21.6-31.8); Chloride 103 mmol/L (96-109); Glucose 121 mg/dL (70-110); Magnesium 2.3 mg/dL (1.5-2.4); Potassium 4.7 mmol/L (3.5-5.5); Sodium 138 mmol/L (135-145)
[2022-12-27 12:18] LABS: HGB 5.9 d/dL (13.0-17.0); MCH 32.8 pg (27.0-32.0); MCHC 31.1 d/dL (32.0-37.0); MCV 105.6 FL (80.0-97.0); Mean Platelet Volume 9.4 FL (9.5-12.2); NRBC Per 100 WBC 0.08 X 10*3/uL (0.00-0.01); Platelet Count 390 X 10*3/uL (140-440); RDW 19.3 % (11.5-14.5); WBC 13.31 X 10*3/uL (4.50-10.00)
[2022-12-27] MEDS ORDERED: SODIUM CHLORIDE 0.9% 500 ML 500 ML IV ONE (12:46)
--- NOTE | 2022-12-27 13:17 | P.NPCON ---
History of Present Illness - Reason for Consult acute renal failure, chronic renal failure - History of Present Illness Patient is a 77-year-old male who has a history of chronic kidney disease and follows with nephrology in [place]. Patient is currently visiting [place] during the summer. He is not aware of his baseline renal function. Patient is admitted to the hospital with complaints of right knee pain which started fairly suddenly. There is no history of trauma. Patient does have history of gout. He is not maintained on specific medications. Uric acid was elevated at 15.6 mg/dL. Serum creatinine at 2.1 mg/dL. Blood pressure was low with systolic noted at 92 mmHg. Maintained on echo drain, Demadex, farxiga as outpatient. Patient states he has been voiding. Review of Systems As per HPI Past Medical History Past Medical History: Atrial Fibrillation, Blood Disorder, Coronary Artery Disease (CAD), Cancer, Heart Failure, Osteoarthritis (OA), Renal Disease, Thyroid Disorder Additional Past Medical History / Comment(s): chemo/radiation 2018 ([facility]), essential thrombocytopenia History of Any Multi-Drug Resistant Organisms: None Reported Past Surgical History: Heart Catheterization, Pacemaker Additional Past Surgical History / Comment(s): 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 Past Anesthesia/Blood Transfusion Reactions: No Reported Reaction Type of Cardiac Device: Permanent Pacemaker Device Placement Date:: 05/2022 Past Psychological History: No Psychological Hx Reported Smoking Status: Former smoker Past Alcohol Use History: Occasional Past Drug Use History: None Reported - Past Family History Mother Family Medical History: Cancer Father Family Medical History: Cancer Medications and Allergies Home Medications Medication Instructions Recorded Confirmed Type Amoxic-Pot Clav 500-125 mg 1 tab PO Q12HR 12/26/22 12/26/22 History [Augmentin 500-125 mg] Apixaban [Eliquis] 2.5 mg PO BID@1100,2300 12/26/22 12/26/22 History Dapagliflozin Propanediol [Farxiga] 10 mg PO DAILY 12/26/22 12/26/22 History Levothyroxine Sodium [Synthroid] 125 mcg PO QAM 12/26/22 12/26/22 History Melatonin 3 mg PO HS@0030 12/26/22 12/26/22 History Midodrine HCl [ProAmatine] 10 mg PO TID@0030,1000,1800 12/26/22 12/26/22 History Sildenafil Citrate 20 mg PO TID@0030,1000,1800 12/26/22 12/26/22 History Sotalol [Betapace] 40 mg PO BID@1100,2300 12/26/22 12/26/22 History Torsemide [Demadex] 40 mg PO BID@1100,2300 12/26/22 12/26/22 History traZODone HCL 100 mg PO HS@0030 12/26/22 12/26/22 History Allergies Allergy/AdvReac Type Severity Reaction Status Date / Time No Known Allergies Allergy Verified 12/26/22 12:32 Physical Exam Vitals: Vital Signs Temp Pulse Resp BP Pulse Ox 12/27/22 07:26 97.8 F 58 L 16 92/54 94 L 12/27/22 02:00 98.5 F 68 103/57 90 L 12/26/22 19:53 98 F 87 18 123/70 95 Intake and Output 12/26/22 12/27/22 12/27/22 22:59 06:59 14:59 Intake Total 540 170 Output Total 200 575 Balance 340 -575 170 Intake: Intake, IV Titration 300 50 Amount Cefepime 1 gm In Sodium 50 Chloride 0.9% 50 ml @ 100 mls/hr IVPB ONCE STA Rx# :[id number] Vancomycin 1,250 mg In 250 Sodium Chloride 0.9% 250 ml @ 125 mls/hr IVPB ONCE ONE Rx#:[id number] ceFAZolin 2 gm In Sodium 50 Chloride 0.9% 50 ml @ 100 mls/hr IVPB Q8HR [facility] Rx# :[id number] Oral 240 120 Output: Urine 200 575 Other: # Voids 1 Weight 64.41 kg Patient is awake, comfortable, no acute distress Examination of the heart S1 and S2 Examination of the lungs bilateral breath sounds are heard Abdomen is soft nontender Examination lower extremity shows no evidence of edema. Right knee is tender no edema noted. 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 Chronic kidney disease with unknown baseline renal function. Etiology is likely nephrosclerosis. Check urine analysis and check ultrasound of the kidneys 2. Possible acute kidney injury secondary to severe anemia. Repeat hemoglobin was 5.9 g/dL. Rule out urine retention 3. Severe anemia with no active bleeding noted. Rule out iron deficiency 4. Hyperuricemia with history of gout. Add Uloric once patient has received steroids. Plan: Check post void bladder scan Maintain IV fluids Repeat labs in a.m. Check UA Check ultrasound of the kidneys Check iron profile Add allopurinol/Uloric if covered. Thank you for the consultation. We will continue to follow the patient with you during his hospitalization.
[2022-12-27 13:19] VITALS: BMI 18.2
[2022-12-27] MEDS ORDERED: DARBEPOETIN ALFA 60 MCG/0.3 ML SYRINGE SQ SCH (13:30)
[2022-12-27] MEDS: SODIUM CHLORIDE 0.9% 1,000 ML IV SCH ×2 (13:51→23:59)
[2022-12-27] MEDS: PANTOPRAZOLE 40 MG/10 ML VIAL IVP SCH (13:52)
[2022-12-27 16:56] LABS: Glucose,Whole Blood 112 mg/dL (70-110)
--- NOTE | 2022-12-27 17:00 | US ---
EXAMINATION TYPE: US kidneys/renal and bladder DATE OF EXAM: 12/27/2022 COMPARISON: NONE CLINICAL INDICATION: Male, 77 years old with history of con; CON EXAM MEASUREMENTS: Right Kidney: 11.8x4.3x6.0 cm Left Kidney: 11.5x4.0x4.1 cm Right Kidney: several cystic areas noted, mid pole: 2.3x2.0x2.0cm at mid pole inferior pole: 2.6x2.7x2.4cm cystic area appears with thick lobulated wall Left Kidney: No hydronephrosis or masses seen Bladder: wnl, not overly distended Bilateral Jets seen: unable to detect due to artifact from overlying bowel septated cystic area in liver noted: 2.1x1.4x1.8cm, small amount of free fluid noted bilaterally exam slightly limited due to bowel gas and patient inability to change positions IMPRESSION: Bilateral renal cysts some which have septations. Given the complexity of some of the cysts a MRI wit h IV contrast renal mass protocol may be of benefit.
[2022-12-27 21:07] LABS: Glucose,Whole Blood 160 mg/dL (70-110)
[2022-12-28 04:59] LABS: % Iron Saturation 2.42 (15.00-50.00)
[2022-12-28] MEDS: LEVOTHYROXINE 125 MCG TAB PO SCH (06:08)
[2022-12-28] MEDS: INSULIN ASPART (NovoLOG) 100 UNIT/ML VIAL SQ SCH ×4 (06:10→20:42)
[2022-12-28 06:11] LABS: Glucose,Whole Blood 123 mg/dL (70-110)
[2022-12-28] MEDS: SODIUM CHLORIDE 0.9% 1,000 ML IV SCH ×2 (07:51→16:54)
[2022-12-28] MEDS: PANTOPRAZOLE 40 MG/10 ML VIAL IVP SCH (07:51)
[2022-12-28] MEDS: DAPAGLIFLOZIN PROPANEDIOL 10 MG TABLET PO SCH (07:59)
[2022-12-28] MEDS: allopurinoL 100 MG TAB PO SCH (07:59)
[2022-12-28 09:05] LABS: Appearance,Urine Clear (Clear); Bacteria,Urine Rare /hpf; Bilirubin,Urine Negative (Negative); Blood,Urine Negative (Negative); Color,Urine Light Yellow; Glucose,Urine (UA) Negative (Negative); Granular Casts,Urine 17 /lpf (0); Hyaline Casts,Urine 3 /lpf (0-2); Ketones,Urine Negative (Negative); Leukocyte Esterase,Urine Negative (Negative); Mucus,Urine Rare /hpf; Nitrite,Urine Negative (Negative); PH, Urine 5.5 (5.0-8.0); Protein,Urine 1+ (Negative); Specific Gravity,Urine 1.015 (1.001-1.035); Urobilinogen,Urine <2.0 mg/dL (<2.0); WBC,Urine 3 /hpf (0-5)
[2022-12-28] MEDS: SILDENAFIL 20 MG TAB PO SCH ×3 (10:22→23:38)
[2022-12-28] MEDS: MIDODRINE 5 MG TAB PO SCH ×3 (10:22→23:36)
[2022-12-28] MEDS: SOTALOL 80 MG TAB PO SCH ×2 (10:23→21:57)
[2022-12-28 11:39] LABS: Glucose,Whole Blood 113 mg/dL (70-110)
[2022-12-28] MEDS: HYDROcodone/APAP 5-325MG 1 EACH TAB PO PRN ×3 (13:18→23:35)
[2022-12-28 13:51] LABS: Acanthocytes 2+; Anisocytosis (M) 2+; Basophils # (M) 0.67 X 10*3/uL (0.00-0.10); Eosinophils # (M) 0 X 10*3/uL (0.04-0.35); HCT 20.9 % (39.6-50.0); HGB 6.5 d/dL (13.0-17.0); Hypochromasia (M) 2+; Lymphocytes # (M) 1.07 X 10*3/uL (0.90-5.00); MCH 31.1 pg (27.0-32.0); MCHC 31.1 d/dL (32.0-37.0); Macrocytosis (M) 2+; Mean Platelet Volume 9.3 FL (9.5-12.2); Metamyelocytes % 6 % (0-0); Monocytes # (M) 1.47 X 10*3/uL (0.20-1.00); Myelocytes % 4 % (0-0); NRBC Per 100 WBC 0.11 X 10*3/uL (0.00-0.01); Neutrophils % (M) 66 %; Nucleated Red Blood Cells 3 /100 WBCS; Platelet Count 398 X 10*3/uL (140-440); RBC 2.09 X 10*6/uL (4.40-5.60); RDW 20.6 % (11.5-14.5); WBC 13.33 X 10*3/uL (4.50-10.00)
--- NOTE | 2022-12-28 13:51 | P.PN ---
Subjective Patient is seen for follow-up for chronic kidney disease. He was admitted with right knee pain. Patient has history of chronic kidney disease and follows with public policy coordinator out of [place]. Patient is here in [place] for the summer. Baseline renal function is not known at this time. Serum creatinine has been at 2.1-2.3 mg/dL. Hemoglobin was 5.9 g/dL yesterday. Repeat labs are not available from today. Next No significant complaints today. Patient reports good urine output. Objective - Vital Signs Vital signs: Vital Signs Temp 97.7 F 12/28/22 07:44 Pulse 61 12/28/22 07:44 Resp 16 12/28/22 08:25 BP 103/53 12/28/22 07:44 Pulse Ox 95 12/28/22 07:44 FiO2 Intake & Output 12/27/22 12/28/22 12/28/22 18:59 06:59 18:59 Intake Total 290 310 970 Output Total 550 600 Balance -260 310 370 Weight 64.41 kg Intake: Intake, IV Titration 50 850 Amount Sodium Chloride 0.9% 1, 800 000 ml @ 100 mls/hr IV . Q10H [facility] Rx#:[id number] ceFAZolin 1,000 mg In 50 Sodium Chloride 0.9% 50 ml @ 100 mls/hr IVPB Q12HR [facility] Rx#:[id number] ceFAZolin 2 gm In Sodium 50 Chloride 0.9% 50 ml @ 100 mls/hr IVPB Q8HR [facility] Rx# :[id number] Oral 240 120 Blood Product 0 310 Rc As-1 Unit 0 310 [id number] Output: Urine 550 600 Other: # Voids 1 2 - Exam Patient is awake, comfortable, no acute distress Examination of the heart S1 and S2 Examination of the lungs bilateral breath sounds are heard Abdomen is soft nontender Examination lower extremity shows no evidence of edema. Right knee is tender no edema noted. 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 exam grossly intact - Labs CBC & Chem 7: 12/27/22 07:01 12/27/22 07:01 Labs: Abnormal Lab Results - Last 24 Hours (Table) 12/27/22 12/27/22 12/27/22 Range/Units 07:01 13:47 16:53 POC Glucose (mg/dL) 112 H (70-110) mg/dL Iron 6 L (65-175) UG/DL % Saturation 2.42 L (15.00-50.00) Transferrin 177.0 L (204.0-354.0) mg/dL Ferritin 983.0 H (22.0-322.0) ng/mL Vitamin B12 1507.0 H (200.0-944.0) pg/mL Urine Protein (Negative) Urine Bacteria (None) /hpf Hyaline Casts (0-2) /lpf Urine Mucus (None) /hpf Crossmatch See Detail 12/27/22 12/28/22 12/28/22 Range/Units 21:06 06:09 08:50 POC Glucose (mg/dL) 160 H 123 H (70-110) mg/dL Iron (65-175) UG/DL % Saturation (15.00-50.00) Transferrin (204.0-354.0) mg/dL Ferritin (22.0-322.0) ng/mL Vitamin B12 (200.0-944.0) pg/mL Urine Protein 1+ H (Negative) Urine Bacteria Rare H (None) /hpf Hyaline Casts 3 H (0-2) /lpf Urine Mucus Rare H (None) /hpf Crossmatch 12/28/22 Range/Units 11:35 POC Glucose (mg/dL) 113 H (70-110) mg/dL Iron (65-175) UG/DL % Saturation (15.00-50.00) Transferrin (204.0-354.0) mg/dL Ferritin (22.0-322.0) ng/mL Vitamin B12 (200.0-944.0) pg/mL Urine Protein (Negative) Urine Bacteria (None) /hpf Hyaline Casts (0-2) /lpf Urine Mucus (None) /hpf Crossmatch Microbiology - Last 24 Hours (Table) 12/26/22 12:00 Blood Culture - Preliminary Blood 12/26/22 12:15 Blood Culture - Preliminary Blood Assessment and Plan Assessment: 1. Chronic kidney disease with unknown baseline renal function. Etiology is likely nephrosclerosis. UA shows 1+ protein otherwise benign. Ultrasound shows bilateral renal cysts some of them have septations Branden at this will need further evaluation down the road. 2. Possible acute kidney injury secondary to severe anemia. Repeat hemoglobin was 5.9 g/dL. 3. Severe anemia with no active bleeding noted. Severe iron deficiency noted with iron saturation at 2.4% 4. Hyperuricemia with history of gout. Add Uloric once patient has received steroids. 5. Right knee pain Plan: Add IV iron Continue with antibiotics Continue Aranesp Repeat labs today. Continue with allopurinol
[2022-12-28 14:28] LABS: BUN/Creat Ratio 29.33 Ratio (12.00-20.00); Blood Urea Nitrogen 61.6 mg/dL (9.0-27.0); Chloride 103 mmol/L (96-109); Glucose 95 mg/dL (70-110); Potassium 4.5 mmol/L (3.5-5.5); Sodium 137 mmol/L (135-145)
[2022-12-28 14:29] LABS: ALT 18 U/L (10-49); AST 29 U/L (14-35); Albumin 3.4 d/dL (3.8-4.9); Albumin/Globulin Ratio 1.55 Ratio (1.60-3.17); Alkaline Phosphatase 81 U/L (41-126); Bilirubin, Conjugated <0.20 mg/dL (0.20-0.40); Calcium 7.9 mg/dL (8.7-10.3); Carbon Dioxide 20.2 mmol/L (21.6-31.8); Globulin 2.2 d/dL (1.6-3.3); Total Bilirubin <0.2 mg/dL (0.3-1.2); Total Protein 5.6 d/dL (6.2-8.2)
[2022-12-28] MEDS: MAGNESIUM HYDROXIDE 2,400 MG/30 ML CUP PO PRN (14:32)
[2022-12-28 14:44] LABS: INR 1.06 sec (0.93-1.11); Prothrombin Time 11.9 sec (9.9-11.9)
--- NOTE | 2022-12-28 14:47 | P.PN ---
Subjective Progress Note Date: 12/28/22 77 years old male Presents because of right knee pain. Patient cannot sleep walk or function with his significant pain which he states was 10/10 also made on admission nonspecific. Patient denies history of trauma. Patient denies any other specific symptoms, no chest pain dyspnea. No other symptom. Patient denies smoking alcohol or illicit drugs Has leukocytosis 13.3, hemoglobin 7.4 Alk phos are normal. Creatinine 2.1 uric acid elevated at 15.6 Liver enzymes unremarkable. Venous Dopplers negative for DVT Right knee x-ray showing large suprapatellar bursa fluid collection. No definite acute fracture. Severe diffuse osteopenia with severe osteoarthritis 12/27/2022 Patient right knee pain is better today, right knee still looks swollen and somewhat warm. Right leg edema is improving. Suspicion for right lower extremity cellulitis is low. However patient To be covered with IV antibiotic There was suspicion of CHF. Her chest x-ray with elevated proBNP 33914. Echocardiogram showed preserved ejection fraction 55-60% with severe pulmonary hypertension. Patient currently off IV fluids. Uric acid was elevated significantly up to 15 suspicious for acute gout flareup because of elevated creatinine patient was started on prednisone 30 mg. 12/28 : Patient seen and evaluated bedside, continue to complain of right knee pain, range of motion limited CRP, pro-calcitonin minimally elevated. Continue IV antibiotics Noted to have anemia hemoglobin less than 71 unit of packed RBC ordered Objective - Vital Signs Vital signs: Vital Signs Temp 97.7 F 12/28/22 07:44 Pulse 61 12/28/22 07:44 Resp 16 12/28/22 08:25 BP 103/53 12/28/22 07:44 Pulse Ox 95 12/28/22 07:44 FiO2 Intake & Output 12/27/22 12/28/22 12/28/22 18:59 06:59 18:59 Intake Total 290 310 970 Output Total 550 600 Balance -260 310 370 Weight 64.41 kg Intake: Intake, IV Titration 50 850 Amount Sodium Chloride 0.9% 1, 800 000 ml @ 100 mls/hr IV . Q10H [facility] Rx#:[id number] ceFAZolin 1,000 mg In 50 Sodium Chloride 0.9% 50 ml @ 100 mls/hr IVPB Q12HR [facility] Rx#:[id number] ceFAZolin 2 gm In Sodium 50 Chloride 0.9% 50 ml @ 100 mls/hr IVPB Q8HR [facility] Rx# :[id number] Oral 240 120 Blood Product 0 310 Rc As-1 Unit 0 310 [id number] Output: Urine 550 600 Other: # Voids 1 2 - Exam PHYSICAL EXAMINATION: GENERAL: The patient is alert and oriented x3, not in any acute distress. Well developed, well nourished. HEENT: Pupils are round and equally reacting to light. EOMI. No scleral icterus. No conjunctival pallor. Normocephalic, atraumatic. No pharyngeal erythema. No thyromegaly. CARDIOVASCULAR: S1 and S2 present. No murmurs, rubs, or gallops. PULMONARY: Chest is clear to auscultation, no wheezing or crackles. ABDOMEN: Soft, nontender, nondistended, normoactive bowel sounds. No palpable organomegaly. MUSCULOSKELETAL: Right knee joint swelling, range of motion limited EXTREMITIES: No cyanosis, clubbing, or pedal edema. NEUROLOGICAL: Gross neurological examination did not reveal any focal deficits. SKIN: No rashes. - Labs CBC & Chem 7: 12/28/22 05:25 12/28/22 05:25 Labs: Abnormal Lab Results - Last 24 Hours (Table) 12/27/22 12/27/22 12/27/22 Range/Units 07:01 13:47 16:53 WBC (4.50-10.00) X 10*3/uL RBC (4.40-5.60) X 10*6/uL Hgb (13.0-17.0) d/dL Hct (39.6-50.0) % MCV (80.0-97.0) FL MCHC (32.0-37.0) d/dL RDW (11.5-14.5) % MPV (9.5-12.2) FL Monocytes # (Manual) (0.20-1.00) X 10*3/uL Eosinophils # (Manual) (0.04-0.35) X 10*3/uL Basophils # (Manual) (0.00-0.10) X 10*3/uL NRBC/100 WBC Diff (0.00-0.01) X 10*3/uL Hypochromasia (manual) Anisocytosis (manual) Macrocytosis (manual) Acanthocytes (Spur) Carbon Dioxide (21.6-31.8) mmol/L Anion Gap (4.00-12.00) mmol/L BUN (9.0-27.0) mg/dL Creatinine (0.6-1.5) mg/dL Est GFR (CKD-EPI) (>=60) BUN/Creatinine Ratio (12.00-20.00) Ratio POC Glucose (mg/dL) 112 H (70-110) mg/dL Calcium (8.7-10.3) mg/dL Iron 6 L (65-175) UG/DL % Saturation 2.42 L (15.00-50.00) Transferrin 177.0 L (204.0-354.0) mg/dL Ferritin 983.0 H (22.0-322.0) ng/mL Total Bilirubin (0.3-1.2) mg/dL Total Protein (6.2-8.2) d/dL Albumin (3.8-4.9) d/dL Albumin/Globulin Ratio (1.60-3.17) Ratio Vitamin B12 1507.0 H (200.0-944.0) pg/mL Urine Protein (Negative) Urine Bacteria (None) /hpf Hyaline Casts (0-2) /lpf Urine Mucus (None) /hpf Crossmatch See Detail 12/27/22 12/28/22 12/28/22 Range/Units 21:06 05:25 05:25 WBC 13.33 H (4.50-10.00) X 10*3/uL RBC 2.09 L (4.40-5.60) X 10*6/uL Hgb 6.5 H* (13.0-17.0) d/dL Hct 20.9 L (39.6-50.0) % MCV 100.0 H (80.0-97.0) FL MCHC 31.1 L (32.0-37.0) d/dL RDW 20.6 H (11.5-14.5) % MPV 9.3 L (9.5-12.2) FL Monocytes # (Manual) 1.47 H (0.20-1.00) X 10*3/uL Eosinophils # (Manual) 0 L (0.04-0.35) X 10*3/uL Basophils # (Manual) 0.67 H (0.00-0.10) X 10*3/uL NRBC/100 WBC Diff 0.11 H (0.00-0.01) X 10*3/uL Hypochromasia (manual) 2+ A Anisocytosis (manual) 2+ A Macrocytosis (manual) 2+ A Acanthocytes (Spur) 2+ A Carbon Dioxide 20.2 L (21.6-31.8) mmol/L Anion Gap 13.80 H (4.00-12.00) mmol/L BUN 61.6 H (9.0-27.0) mg/dL Creatinine 2.1 H (0.6-1.5) mg/dL Est GFR (CKD-EPI) 32 L (>=60) BUN/Creatinine Ratio 29.33 H (12.00-20.00) Ratio POC Glucose (mg/dL) 160 H (70-110) mg/dL Calcium 7.9 L (8.7-10.3) mg/dL Iron (65-175) UG/DL % Saturation (15.00-50.00) Transferrin (204.0-354.0) mg/dL Ferritin (22.0-322.0) ng/mL Total Bilirubin <0.2 L (0.3-1.2) mg/dL Total Protein 5.6 L (6.2-8.2) d/dL Albumin 3.4 L (3.8-4.9) d/dL Albumin/Globulin Ratio 1.55 L (1.60-3.17) Ratio Vitamin B12 (200.0-944.0) pg/mL Urine Protein (Negative) Urine Bacteria (None) /hpf Hyaline Casts (0-2) /lpf Urine Mucus (None) /hpf Crossmatch 12/28/22 12/28/22 12/28/22 Range/Units 06:09 08:50 11:35 WBC (4.50-10.00) X 10*3/uL RBC (4.40-5.60) X 10*6/uL Hgb (13.0-17.0) d/dL Hct (39.6-50.0) % MCV (80.0-97.0) FL MCHC (32.0-37.0) d/dL RDW (11.5-14.5) % MPV (9.5-12.2) FL Monocytes # (Manual) (0.20-1.00) X 10*3/uL Eosinophils # (Manual) (0.04-0.35) X 10*3/uL Basophils # (Manual) (0.00-0.10) X 10*3/uL NRBC/100 WBC Diff (0.00-0.01) X 10*3/uL Hypochromasia (manual) Anisocytosis (manual) Macrocytosis (manual) Acanthocytes (Spur) Carbon Dioxide (21.6-31.8) mmol/L Anion Gap (4.00-12.00) mmol/L BUN (9.0-27.0) mg/dL Creatinine (0.6-1.5) mg/dL Est GFR (CKD-EPI) (>=60) BUN/Creatinine Ratio (12.00-20.00) Ratio POC Glucose (mg/dL) 123 H 113 H (70-110) mg/dL Calcium (8.7-10.3) mg/dL Iron (65-175) UG/DL % Saturation (15.00-50.00) Transferrin (204.0-354.0) mg/dL Ferritin (22.0-322.0) ng/mL Total Bilirubin (0.3-1.2) mg/dL Total Protein (6.2-8.2) d/dL Albumin (3.8-4.9) d/dL Albumin/Globulin Ratio (1.60-3.17) Ratio Vitamin B12 (200.0-944.0) pg/mL Urine Protein 1+ H (Negative) Urine Bacteria Rare H (None) /hpf Hyaline Casts 3 H (0-2) /lpf Urine Mucus Rare H (None) /hpf Crossmatch Microbiology - Last 24 Hours (Table) 12/26/22 12:00 Blood Culture - Preliminary Blood 12/26/22 12:15 Blood Culture - Preliminary Blood Assessment and Plan Assessment: Assessment: Acute right inflammation arthritis Elevated uric acid Iron Deficiency anemia Severe pulmonary hypertension History of atrial fibrillation Plan: Continue with antibiotic, currently on cefazolin Infectious disease and orthopedic team consult Follow-up on pro-calcitonin CRP levels Eliquis on hold and anticipation of any INTERVENTION, also secondary to low hemoglobin Nephrology following continue to monitor renal function, started on IV iron, continue Continue sotalol, monitor electrolytes
[2022-12-28] MEDS: SODIUM FERRIC GLUCONAT-SUCROSE 125 MG in SODIUM CHLORIDE 0.9% 100 ML IVPB SCH (15:02)
--- NOTE | 2022-12-28 15:18 | P.PN ---
Subjective Progress Note Date: 12/28/22 This is a 77-year-old male who is admitted because of right knee pain. Patient is seen and evaluated at bedside today. Patient states that yesterday his knee pain improved and he was able to get out of bed and walk around the room. Patient states that today the knee has been more painful and he has been too sore to walk. Patient has a low hemoglobin requiring transfusion today. Objective - Vital Signs Vital signs: Vital Signs Temp 97.6 F 12/28/22 14:00 Pulse 61 12/28/22 14:00 Resp 16 12/28/22 14:00 BP 94/55 12/28/22 14:00 Pulse Ox 97 12/28/22 14:00 FiO2 Intake & Output 12/27/22 12/28/22 12/28/22 18:59 06:59 18:59 Intake Total 534 303 8872 Output Total 550 600 Balance -260 310 490 Weight 64.41 kg Intake: Intake, IV Titration 50 850 Amount Sodium Chloride 0.9% 1, 800 000 ml @ 100 mls/hr IV . Q10H [facility] Rx#:[id number] ceFAZolin 1,000 mg In 50 Sodium Chloride 0.9% 50 ml @ 100 mls/hr IVPB Q12HR [facility] Rx#:[id number] ceFAZolin 2 gm In Sodium 50 Chloride 0.9% 50 ml @ 100 mls/hr IVPB Q8HR [facility] Rx# :[id number] Oral 240 240 Blood Product 0 310 Rc As-1 Unit 0 310 [id number] Output: Urine 550 600 Other: # Voids 1 2 - Exam On exam patient is resting comfortably in bed in no acute distress. Patient is alert and oriented 3. There is no significant swelling of the right knee. There is no erythema or ecchymosis. Skin is intact. There is tenderness to palpation over the medial aspect of the right knee. There is pain and limitation with active and passive range of motion of the right knee. Swelling to the right lower extremity is improving. Sensation is intact. Calf is soft and nontender to palpation. Neurovascular status circulatory status are intact. - Labs CBC & Chem 7: 12/28/22 05:25 12/28/22 05:25 Labs: Abnormal Lab Results - Last 24 Hours (Table) 12/27/22 12/27/22 12/27/22 Range/Units 07:01 13:47 16:53 WBC (4.50-10.00) X 10*3/uL RBC (4.40-5.60) X 10*6/uL Hgb (13.0-17.0) d/dL Hct (39.6-50.0) % MCV (80.0-97.0) FL MCHC (32.0-37.0) d/dL RDW (11.5-14.5) % MPV (9.5-12.2) FL Monocytes # (Manual) (0.20-1.00) X 10*3/uL Eosinophils # (Manual) (0.04-0.35) X 10*3/uL Basophils # (Manual) (0.00-0.10) X 10*3/uL NRBC/100 WBC Diff (0.00-0.01) X 10*3/uL Hypochromasia (manual) Anisocytosis (manual) Macrocytosis (manual) Acanthocytes (Spur) Carbon Dioxide (21.6-31.8) mmol/L Anion Gap (4.00-12.00) mmol/L BUN (9.0-27.0) mg/dL Creatinine (0.6-1.5) mg/dL Est GFR (CKD-EPI) (>=60) BUN/Creatinine Ratio (12.00-20.00) Ratio POC Glucose (mg/dL) 112 H (70-110) mg/dL Calcium (8.7-10.3) mg/dL Iron 6 L (65-175) UG/DL % Saturation 2.42 L (15.00-50.00) Transferrin 177.0 L (204.0-354.0) mg/dL Ferritin 983.0 H (22.0-322.0) ng/mL Total Bilirubin (0.3-1.2) mg/dL Total Protein (6.2-8.2) d/dL Albumin (3.8-4.9) d/dL Albumin/Globulin Ratio (1.60-3.17) Ratio Vitamin B12 1507.0 H (200.0-944.0) pg/mL Urine Protein (Negative) Urine Bacteria (None) /hpf Hyaline Casts (0-2) /lpf Urine Mucus (None) /hpf Crossmatch See Detail 12/27/22 12/28/22 12/28/22 Range/Units 21:06 05:25 05:25 WBC 13.33 H (4.50-10.00) X 10*3/uL RBC 2.09 L (4.40-5.60) X 10*6/uL Hgb 6.5 H* (13.0-17.0) d/dL Hct 20.9 L (39.6-50.0) % MCV 100.0 H (80.0-97.0) FL MCHC 31.1 L (32.0-37.0) d/dL RDW 20.6 H (11.5-14.5) % MPV 9.3 L (9.5-12.2) FL Monocytes # (Manual) 1.47 H (0.20-1.00) X 10*3/uL Eosinophils # (Manual) 0 L (0.04-0.35) X 10*3/uL Basophils # (Manual) 0.67 H (0.00-0.10) X 10*3/uL NRBC/100 WBC Diff 0.11 H (0.00-0.01) X 10*3/uL Hypochromasia (manual) 2+ A Anisocytosis (manual) 2+ A Macrocytosis (manual) 2+ A Acanthocytes (Spur) 2+ A Carbon Dioxide 20.2 L (21.6-31.8) mmol/L Anion Gap 13.80 H (4.00-12.00) mmol/L BUN 61.6 H (9.0-27.0) mg/dL Creatinine 2.1 H (0.6-1.5) mg/dL Est GFR (CKD-EPI) 32 L (>=60) BUN/Creatinine Ratio 29.33 H (12.00-20.00) Ratio POC Glucose (mg/dL) 160 H (70-110) mg/dL Calcium 7.9 L (8.7-10.3) mg/dL Iron (65-175) UG/DL % Saturation (15.00-50.00) Transferrin (204.0-354.0) mg/dL Ferritin (22.0-322.0) ng/mL Total Bilirubin <0.2 L (0.3-1.2) mg/dL Total Protein 5.6 L (6.2-8.2) d/dL Albumin 3.4 L (3.8-4.9) d/dL Albumin/Globulin Ratio 1.55 L (1.60-3.17) Ratio Vitamin B12 (200.0-944.0) pg/mL Urine Protein (Negative) Urine Bacteria (None) /hpf Hyaline Casts (0-2) /lpf Urine Mucus (None) /hpf Crossmatch 12/28/22 12/28/22 12/28/22 Range/Units 06:09 08:50 11:35 WBC (4.50-10.00) X 10*3/uL RBC (4.40-5.60) X 10*6/uL Hgb (13.0-17.0) d/dL Hct (39.6-50.0) % MCV (80.0-97.0) FL MCHC (32.0-37.0) d/dL RDW (11.5-14.5) % MPV (9.5-12.2) FL Monocytes # (Manual) (0.20-1.00) X 10*3/uL Eosinophils # (Manual) (0.04-0.35) X 10*3/uL Basophils # (Manual) (0.00-0.10) X 10*3/uL NRBC/100 WBC Diff (0.00-0.01) X 10*3/uL Hypochromasia (manual) Anisocytosis (manual) Macrocytosis (manual) Acanthocytes (Spur) Carbon Dioxide (21.6-31.8) mmol/L Anion Gap (4.00-12.00) mmol/L BUN (9.0-27.0) mg/dL Creatinine (0.6-1.5) mg/dL Est GFR (CKD-EPI) (>=60) BUN/Creatinine Ratio (12.00-20.00) Ratio POC Glucose (mg/dL) 123 H 113 H (70-110) mg/dL Calcium (8.7-10.3) mg/dL Iron (65-175) UG/DL % Saturation (15.00-50.00) Transferrin (204.0-354.0) mg/dL Ferritin (22.0-322.0) ng/mL Total Bilirubin (0.3-1.2) mg/dL Total Protein (6.2-8.2) d/dL Albumin (3.8-4.9) d/dL Albumin/Globulin Ratio (1.60-3.17) Ratio Vitamin B12 (200.0-944.0) pg/mL Urine Protein 1+ H (Negative) Urine Bacteria Rare H (None) /hpf Hyaline Casts 3 H (0-2) /lpf Urine Mucus Rare H (None) /hpf Crossmatch Microbiology - Last 24 Hours (Table) 12/26/22 12:00 Blood Culture - Preliminary Blood 12/26/22 12:15 Blood Culture - Preliminary Blood Assessment and Plan (1) Right knee pain Current Visit: Yes Status: Acute Code(s): M25.561 - PAIN IN RIGHT KNEE SNOMED Code(s): 8061909716 (2) Osteoarthritis of right knee Current Visit: Yes Status: Acute Code(s): M17.11 - UNILATERAL PRIMARY OSTEO ARTHRITIS, RIGHT KNEE SNOMED Code(s): 293285843147283 Plan: 1. X-rays of the right knee are reviewed revealing severe osteoarthritis. These findings are consistent with the patient's symptoms of knee pain. There is a very low suspicion for right knee infection. No surgical intervention planned. 2. Patient is currently on IV antibiotics for cellulitis and is receiving a blood transfusion for anemia. The patient is also being treated for gout. Patient may benefit from cortisone injection which we recommend be done on an outpatient basis.
--- NOTE | 2022-12-28 15:30 | P.GSCN ---
History of Present Illness Consult date: 12/28/22 History of present illness: CHIEF COMPLAINT: Right knee pain HISTORY OF PRESENT ILLNESS: This a 77-year-old male who presented with complaints of right knee pain. He hasn't orthopedic service and was found to have osteoarthritis of the right knee. Currently on antibiotics for possible cellulitis and being treated for gout. Patient was also found to be anemic with a hemoglobin of 7.4 down to 5.9. Hemoglobin is currently 6.5. Patient is scheduled for his second unit of blood. Iron levels low at 6. Also evidence of acute on chronic kidney injury. Followed by nephrology. He has been started on Aranesp and IV iron. Patient denies any hematochezia or any melanotic stools. Patient denies any prior history of colonoscopy or EGD. Denies any family history of colon cancer. He does have history of essential thrombocythemia and has been exposed to agent orange. Patient has history of chronic anemia. Has required blood transfusions in the past. He also has been on iron supplements in the past. Patient does follow with a senior asic engineer out of [place]. Patient reports that his agent orange exposure has contributed to his anemia. Patient is not interested in any endoscopies at this time. Patient is on Eliquis for history of afib. PAST MEDICAL HISTORY: See below PAST SURGICAL HISTORY: See below. Pacemaker MEDICATIONS: See below ALLERGIES: See below SOCIAL HISTORY: No illicit drug use. REVIEW OF SYSTEMS: CONSTITUTIONAL: Denies fever or chills. HEENT: Denies blurred vision, vision changes, or eye pain. Denies hemoptysis CARDIOVASCULAR: Denies chest pain or pressure. RESPIRATORY: No shortness of breath. GASTROINTESTINAL: See HPI for pertinent findings HEMATOLOGIC: Denies bleeding disorders. GENITOURINARY: Denies any blood in urine or increased urinary frequency. SKIN: Denies pruitis. Denies rash. PHYSICAL EXAM: VITAL SIGNS: Reviewed GENERAL: Well-developed in no acute distress. HEENT: No sclera icterus. Extraocular movements grossly intact. Moist buccal mucosa. Head is atraumatic, normocephalic. No nasal drainage. ABDOMEN: Soft. Nondistended. Nontender NEUROLOGIC: Alert and oriented. Cranial nerves II through XII grossly intact. Extremities right knee swollen and tender. No erythema LABORATORY DATA: WBC 13.33 Hgb 6.5 platelets 398 Sodium is 137 potassium 4.5 creatinine 2.1 Iron low at 6 IMAGING: ASSESSMENT: 1. Iron deficiency anemia 2. History of chronic anemia 3. History of essential thrombocythemia 4. History of agent orange exposure 5. Acute on chronic kidney disease 6. Right knee pain with swelling and osteoarthritis 7. History of A. fib on Eliquis at home PLAN: -Endoscopies offered to patient. Patient has declined proceeding with either EGD or colonoscopy -Continue blood transfusions as needed -Agree with IV iron -Hold Eliquis Thank you for this consultation Physician Salt Grinder note has been reviewed by physician. Signing provider agrees with the documented findings, assessment, and plan of care. I have personally seen and examined the patient, reviewed the HOUSING COORDINATOR /PAs history, exam and MDM and agree with the assessment and plan as written. Based on total visit time, I have performed more than 50% of the visit. As above: Patient with significant anemia. Patient insists that he has this frequently and he is not interested in endoscopy. No rectal bleeding or melena. No recent change in bowel habits. Patient says he follows with a senior asic engineer oncologist in [place]. They are agreeable to follow-up with them when they return home. We'll sign off. Please call if patient changes his opinion regarding inpatient endoscopy. 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 Past Anesthesia/Blood Transfusion Reactions: No Reported Reaction Type of Cardiac Device: Permanent Pacemaker Device Placement Date:: 05/2022 Past Psychological History: No Psychological Hx Reported Smoking Status: Former smoker Past Alcohol Use History: Occasional Past Drug Use History: None Reported - Past Family History Mother Family Medical History: Cancer Father Family Medical History: Cancer Medications and Allergies Home Medications Medication Instructions Recorded Confirmed Type Amoxic-Pot Clav 500-125 mg 1 tab PO Q12HR 12/26/22 12/26/22 History [Augmentin 500-125 mg] Apixaban [Eliquis] 2.5 mg PO BID@1100,2300 12/26/22 12/26/22 History Dapagliflozin Propanediol [Farxiga] 10 mg PO DAILY 12/26/22 12/26/22 History Levothyroxine Sodium [Synthroid] 125 mcg PO QAM 12/26/22 12/26/22 History Melatonin 3 mg PO HS@0030 12/26/22 12/26/22 History Midodrine HCl [ProAmatine] 10 mg PO TID@0030,1000,1800 12/26/22 12/26/22 History Sildenafil Citrate 20 mg PO TID@0030,1000,1800 12/26/22 12/26/22 History Sotalol [Betapace] 40 mg PO BID@1100,2300 12/26/22 12/26/22 History Torsemide [Demadex] 40 mg PO BID@1100,2300 12/26/22 12/26/22 History traZODone HCL 100 mg PO HS@0030 12/26/22 12/26/22 History Allergies Allergy/AdvReac Type Severity Reaction Status Date / Time No Known Allergies Allergy Verified 12/26/22 12:32 Surgical - Exam Vital Signs Temp Pulse Resp BP Pulse Ox 98.9 F 62 18 125/58 92 L 12/26/22 09:49 12/26/22 09:49 12/26/22 09:49 12/26/22 09:49 12/26/22 09:49 Results - Labs 12/28/22 05:25 12/28/22 05:25 Abnormal Lab Results - Last 24 Hours (Table) 12/27/22 12/27/22 12/27/22 Range/Units 07:01 13:47 16:53 WBC (4.50-10.00) X 10*3/uL RBC (4.40-5.60) X 10*6/uL Hgb (13.0-17.0) d/dL Hct (39.6-50.0) % MCV (80.0-97.0) FL MCHC (32.0-37.0) d/dL RDW (11.5-14.5) % MPV (9.5-12.2) FL Monocytes # (Manual) (0.20-1.00) X 10*3/uL Eosinophils # (Manual) (0.04-0.35) X 10*3/uL Basophils # (Manual) (0.00-0.10) X 10*3/uL NRBC/100 WBC Diff (0.00-0.01) X 10*3/uL Hypochromasia (manual) Anisocytosis (manual) Macrocytosis (manual) Acanthocytes (Spur) Carbon Dioxide (21.6-31.8) mmol/L Anion Gap (4.00-12.00) mmol/L BUN (9.0-27.0) mg/dL Creatinine (0.6-1.5) mg/dL Est GFR (CKD-EPI) (>=60) BUN/Creatinine Ratio (12.00-20.00) Ratio POC Glucose (mg/dL) 112 H (70-110) mg/dL Calcium (8.7-10.3) mg/dL Iron 6 L (65-175) UG/DL % Saturation 2.42 L (15.00-50.00) Transferrin 177.0 L (204.0-354.0) mg/dL Ferritin 983.0 H (22.0-322.0) ng/mL Total Bilirubin (0.3-1.2) mg/dL Total Protein (6.2-8.2) d/dL Albumin (3.8-4.9) d/dL Albumin/Globulin Ratio (1.60-3.17) Ratio Vitamin B12 1507.0 H (200.0-944.0) pg/mL Urine Protein (Negative) Urine Bacteria (None) /hpf Hyaline Casts (0-2) /lpf Urine Mucus (None) /hpf Crossmatch See Detail 12/27/22 12/28/22 12/28/22 Range/Units 21:06 05:25 05:25 WBC 13.33 H (4.50-10.00) X 10*3/uL RBC 2.09 L (4.40-5.60) X 10*6/uL Hgb 6.5 H* (13.0-17.0) d/dL Hct 20.9 L (39.6-50.0) % MCV 100.0 H (80.0-97.0) FL MCHC 31.1 L (32.0-37.0) d/dL RDW 20.6 H (11.5-14.5) % MPV 9.3 L (9.5-12.2) FL Monocytes # (Manual) 1.47 H (0.20-1.00) X 10*3/uL Eosinophils # (Manual) 0 L (0.04-0.35) X 10*3/uL Basophils # (Manual) 0.67 H (0.00-0.10) X 10*3/uL NRBC/100 WBC Diff 0.11 H (0.00-0.01) X 10*3/uL Hypochromasia (manual) 2+ A Anisocytosis (manual) 2+ A Macrocytosis (manual) 2+ A Acanthocytes (Spur) 2+ A Carbon Dioxide 20.2 L (21.6-31.8) mmol/L Anion Gap 13.80 H (4.00-12.00) mmol/L BUN 61.6 H (9.0-27.0) mg/dL Creatinine 2.1 H (0.6-1.5) mg/dL Est GFR (CKD-EPI) 32 L (>=60) BUN/Creatinine Ratio 29.33 H (12.00-20.00) Ratio POC Glucose (mg/dL) 160 H (70-110) mg/dL Calcium 7.9 L (8.7-10.3) mg/dL Iron (65-175) UG/DL % Saturation (15.00-50.00) Transferrin (204.0-354.0) mg/dL Ferritin (22.0-322.0) ng/mL Total Bilirubin <0.2 L (0.3-1.2) mg/dL Total Protein 5.6 L (6.2-8.2) d/dL Albumin 3.4 L (3.8-4.9) d/dL Albumin/Globulin Ratio 1.55 L (1.60-3.17) Ratio Vitamin B12 (200.0-944.0) pg/mL Urine Protein (Negative) Urine Bacteria (None) /hpf Hyaline Casts (0-2) /lpf Urine Mucus (None) /hpf Crossmatch 12/28/22 12/28/22 12/28/22 Range/Units 06:09 08:50 11:35 WBC (4.50-10.00) X 10*3/uL RBC (4.40-5.60) X 10*6/uL Hgb (13.0-17.0) d/dL Hct (39.6-50.0) % MCV (80.0-97.0) FL MCHC (32.0-37.0) d/dL RDW (11.5-14.5) % MPV (9.5-12.2) FL Monocytes # (Manual) (0.20-1.00) X 10*3/uL Eosinophils # (Manual) (0.04-0.35) X 10*3/uL Basophils # (Manual) (0.00-0.10) X 10*3/uL NRBC/100 WBC Diff (0.00-0.01) X 10*3/uL Hypochromasia (manual) Anisocytosis (manual) Macrocytosis (manual) Acanthocytes (Spur) Carbon Dioxide (21.6-31.8) mmol/L Anion Gap (4.00-12.00) mmol/L BUN (9.0-27.0) mg/dL Creatinine (0.6-1.5) mg/dL Est GFR (CKD-EPI) (>=60) BUN/Creatinine Ratio (12.00-20.00) Ratio POC Glucose (mg/dL) 123 H 113 H (70-110) mg/dL Calcium (8.7-10.3) mg/dL Iron (65-175) UG/DL % Saturation (15.00-50.00) Transferrin (204.0-354.0) mg/dL Ferritin (22.0-322.0) ng/mL Total Bilirubin (0.3-1.2) mg/dL Total Protein (6.2-8.2) d/dL Albumin (3.8-4.9) d/dL Albumin/Globulin Ratio (1.60-3.17) Ratio Vitamin B12 (200.0-944.0) pg/mL Urine Protein 1+ H (Negative) Urine Bacteria Rare H (None) /hpf Hyaline Casts 3 H (0-2) /lpf Urine Mucus Rare H (None) /hpf Crossmatch Microbiology - Last 24 Hours (Table) 12/26/22 12:00 Blood Culture - Preliminary Blood 12/26/22 12:15 Blood Culture - Preliminary Blood Diabetes panel 12/28/22 Range/Units 05:25 Sodium 137 (135-145) mmol/L Potassium 4.5 (3.5-5.5) mmol/L Chloride 103 (96-109) mmol/L Carbon Dioxide 20.2 L (21.6-31.8) mmol/L BUN 61.6 H (9.0-27.0) mg/dL Creatinine 2.1 H (0.6-1.5) mg/dL Glucose 95 (70-110) mg/dL Calcium 7.9 L (8.7-10.3) mg/dL AST 29 (14-35) U/L ALT 18 (10-49) U/L Alkaline Phosphatase 81 (41-126) U/L Total Protein 5.6 L (6.2-8.2) d/dL Albumin 3.4 L (3.8-4.9) d/dL Calcium panel 12/28/22 Range/Units 05:25 Calcium 7.9 L (8.7-10.3) mg/dL Albumin 3.4 L (3.8-4.9) d/dL Pituitary panel 12/28/22 Range/Units 05:25 Sodium 137 (135-145) mmol/L Potassium 4.5 (3.5-5.5) mmol/L Chloride 103 (96-109) mmol/L Carbon Dioxide 20.2 L (21.6-31.8) mmol/L BUN 61.6 H (9.0-27.0) mg/dL Creatinine 2.1 H (0.6-1.5) mg/dL Glucose 95 (70-110) mg/dL Calcium 7.9 L (8.7-10.3) mg/dL Adrenal panel 12/28/22 Range/Units 05:25 Sodium 137 (135-145) mmol/L Potassium 4.5 (3.5-5.5) mmol/L Chloride 103 (96-109) mmol/L Carbon Dioxide 20.2 L (21.6-31.8) mmol/L BUN 61.6 H (9.0-27.0) mg/dL Creatinine 2.1 H (0.6-1.5) mg/dL Glucose 95 (70-110) mg/dL Calcium 7.9 L (8.7-10.3) mg/dL Total Bilirubin <0.2 L (0.3-1.2) mg/dL AST 29 (14-35) U/L ALT 18 (10-49) U/L Alkaline Phosphatase 81 (41-126) U/L Total Protein 5.6 L (6.2-8.2) d/dL Albumin 3.4 L (3.8-4.9) d/dL
[2022-12-28 16:46] LABS: Glucose,Whole Blood 108 mg/dL (70-110)
[2022-12-28 20:52] LABS: Glucose,Whole Blood 110 mg/dL (70-110)
[2022-12-28] MEDS: traZODone HCL 100 MG TAB PO SCH (23:36)
[2022-12-28] MEDS: MELATONIN 3 MG TABLET PO SCH (23:36)
[2022-12-29] MEDS: SODIUM CHLORIDE 0.9% 1,000 ML IV SCH ×3 (05:29→23:34)
[2022-12-29 06:10] LABS: Glucose,Whole Blood 92 mg/dL (70-110)
[2022-12-29] MEDS: INSULIN ASPART (NovoLOG) 100 UNIT/ML VIAL SQ SCH ×4 (06:10→21:20)
[2022-12-29] MEDS: HYDROcodone/APAP 5-325MG 1 EACH TAB PO PRN (06:14)
[2022-12-29] MEDS: LEVOTHYROXINE 125 MCG TAB PO SCH (06:14)
[2022-12-29] MEDS: PANTOPRAZOLE 40 MG/10 ML VIAL IVP SCH (07:48)
[2022-12-29] MEDS: allopurinoL 100 MG TAB PO SCH (07:48)
[2022-12-29] MEDS: DAPAGLIFLOZIN PROPANEDIOL 10 MG TABLET PO SCH (07:49)
[2022-12-29] MEDS: SODIUM FERRIC GLUCONAT-SUCROSE 125 MG in SODIUM CHLORIDE 0.9% 100 ML IVPB SCH (09:45)
[2022-12-29] MEDS: MIDODRINE 5 MG TAB PO SCH ×3 (09:45→23:34)
[2022-12-29] MEDS: SILDENAFIL 20 MG TAB PO SCH ×3 (09:46→23:34)
[2022-12-29 11:20] LABS: BUN/Creat Ratio 27.25 Ratio (12.00-20.00); Blood Urea Nitrogen 54.5 mg/dL (9.0-27.0); Calcium 8.2 mg/dL (8.7-10.3); Carbon Dioxide 19.7 mmol/L (21.6-31.8); Chloride 105 mmol/L (96-109); Glucose 84 mg/dL (70-110); Potassium 4.6 mmol/L (3.5-5.5); Sodium 137 mmol/L (135-145)
[2022-12-29 11:28] LABS: HCT 23.4 % (39.6-50.0); HGB 7.3 d/dL (13.0-17.0); MCH 30.7 pg (27.0-32.0); MCHC 31.2 d/dL (32.0-37.0); MCV 98.3 FL (80.0-97.0); Mean Platelet Volume 9.4 FL (9.5-12.2); NRBC Per 100 WBC 0.17 X 10*3/uL (0.00-0.01); Platelet Count 378 X 10*3/uL (140-440); RBC 2.38 X 10*6/uL (4.40-5.60); RDW 20.8 % (11.5-14.5); WBC 10.57 X 10*3/uL (4.50-10.00)
[2022-12-29 11:33] LABS: Glucose,Whole Blood 117 mg/dL (70-110)
--- NOTE | 2022-12-29 11:38 | CDI ---
Documentation Clarification Form Date: 12/29/2022 11:02:49 AM From: Tierra Baer RN CCDS Phone: [phone] Admit Date: 12/26/2022 11:45:00 AM Patient Name: Arjun Olmedo Visit Number: [id number] Discharge Date: ATTENTION: The Clinical Documentation Specialists (CDI) and [facility] Coding Staff appreciate your assistance in clarifying documentation. Please respond to the clarification below the line at the bottom and electronically sign. The CDI & [facility] Coding staff will review the response and follow-up if needed. Please note: Queries are made part of the Legal Health Record. If you have any questions, please contact the author of this message via ITS. Dr. Richard Campbell MD The Registered Dietitian assessment on 12/27 indicates this patient meets criteria for severe malnutrition. Based on this information and the findings below, is there an additional diagnosis that is clinically appropriate for this patient? History/Risk Factors: 77-year-old male presented with right knee pain. Medical history: Atrial fibrillation, CAD, OA, Renal disease, CHF and OA. 12/26 Medicine note. Clinical Indicators: Current BMI: 18.2kg RD Consult Assessment: 12/27 Diet History prior to admission: Low sodium 2gm diet DIE TR[employer]. Anthropometrics: Weight 64.41kg estimated by patient. Height 6ft 2in BMI 18.2. BMI index Underweight, Patient unsure of UBW. Nutritional Intake: Fair, 50-75% consumed. Patient reports appetite always good. In July of 2022 patient weight 180# but attributed weight gain to fluids and lost it once He was put on Lasix. Physical Findings: Severe muscle wasting temporalis, pectoralis, deltoids and interosseous, moderate tricep muscle wasting. Severe fat pad wasting of orbitals and buccals. Treatment: Diet adjusted from renal to Heart Healthy diet. Nutritional education on priority modifications, nutrition relationship to health / disease. Discussed adequate nutrition and caloric needs for weight gain. Supplements: Ensure plus once a day at dinner Is there an additional diagnosis that is clinically appropriate for this patient? [ y ] Severe Protein-Calorie Malnutrition [ ] Other condition, please specify [ ] Unable to Determine In responding to this query, please exercise your independent professional judgment. The [facility] Coding Staff and Clinical Documentation Specialists appreciate your assistance in clarifying documentation, maintaining compliance with coding guidelines, accurately documenting patients condition and capturing severity of illness. The fact that a question is asked does not imply that any particular answer is desired or expected. Communication forms are a method of clarifying documentation and are made part of the Legal Health Record. Thank you in advance for your clarification. Last Reviewed November 2022 Reference: Using the ASPEN Guidelines, Undernutrition (Malnutrition) is characterized by at least two of the following six findings. The severity can be determined based on the criteria listed below. Malnutrition Characteristics for Moderate and Severe Malnutrition Type of Malnutrition Acute Illness or Injury Chronic Illness Degree of Malnutrition Non-severe (moderate) Malnutrition Severe Malnutrition Non-severe (moderate) Malnutrition Severe Malnutrition Energy Intake <75% for >7 days = 50% for = 5 days <75% for = 1 month =75% for = 1 month Weight Loss 1-2% in one week, 5% in 1 month, 7.5% in 3 months 2% in one week, >5% in 1 month, >7.5% in 3 months 5% in one month, 7.5% in 3 months, 10% in 6 months, 20% in 1 year >5% in one month, >7.5% in 3 months, >10% in 6 months, >20% in 1 year Body Fat Wasting Mild Moderate Mild Severe Muscle Wasting Mild Moderate Mild Severe Presence of Edema Mild Moderate to Severe Mild Severe Associate Manager Strength Not applicable Measurably Reduced Not applicable Measurably Reduced Source: Rupal EspinoV, Eriberto P, Rich G, et al. Consensus statement: Academy of Nutrition and Dietetics and [place] Society for Parenteral and Enteral Nutrition: characteristics recommended for the identification and documentation of adult malnutrition (undernutrition).ESSIE Espino Parenter Enteral Nutr. 2012;36(3):275-283. (Template Last Revised: November 2022) MTDD
[2022-12-29] MEDS: MAGNESIUM HYDROXIDE 2,400 MG/30 ML CUP PO PRN (12:22)
[2022-12-29] MEDS: SOTALOL 80 MG TAB PO SCH ×2 (12:22→23:30)
--- NOTE | 2022-12-29 12:57 | P.PN ---
Subjective Progress Note Date: 12/29/22 Principal diagnosis: Right lower extremity cellulitis and leukocytosis Patient is a 77-year-old male with a past medical history significant for arrhythmia s/p pacemaker placement presenting to the hospital for evaluation of increasing pain to the right knee area , patient did have the x-ray concerning for large suprapatellar bursa he did have elevated white count and was concerned for possible bursitis patient also have a swelling and redness right lower same concern for possible component of cellulitis, patient has been evaluated by orthopedic surgery and recommending no aspiration was suspicious for infection. on today's evaluation that is 12/29/2022 patient continues to be afebrile, the patient is breathing comfortably on room air , the patient right knee pain has decreased in intensity and the right ankle and foot area swelling and redness has resolved patient denies any pain in that area, no nausea no vomiting no abdominal pain and no diarrhea. Patient did have a white count of 10.57, hemoglobin of 7.3, creatinine is 2.0, pro-calcitonin is mildly elevated to 0.55, patient did have uric acid of 15.6, blood culture has been negative Objective - Vital Signs Vital signs: Vital Signs Temp 97.5 F L 12/29/22 06:57 Pulse 65 12/29/22 06:57 Resp 19 12/29/22 06:57 BP 100/60 12/29/22 06:57 Pulse Ox 94 L 12/29/22 06:57 FiO2 Intake & Output 12/28/22 12/29/22 12/29/22 18:59 06:59 18:59 Intake Total 1090 1050 Output Total 600 600 Balance 490 450 Intake: Intake, IV Titration 850 1050 Amount Sodium Chloride 0.9% 1, 800 1000 000 ml @ 100 mls/hr IV . Q10H [facility] Rx#:[id number] ceFAZolin 1,000 mg In 50 50 Sodium Chloride 0.9% 50 ml @ 100 mls/hr IVPB Q12HR [facility] Rx#:[id number] Oral 240 Blood Product 0 0 Rc Pheresis As-3 Unit 0 0 [id number] Output: Urine 600 600 Other: # Voids 1 4 # Bowel Movements 1 1 - Exam GENERAL DESCRIPTION: An elderly male lying in bed in no distress RESPIRATORY SYSTEM: Unlabored breathing , decreased breath sounds at bases HEART: S1 S2 regular rate and rhythm , ABDOMEN: Soft , no tenderness EXTREMITIES: Right knee minimal warmth but no redness right lower extremity along ankle area swelling and redness has resolved and not tender to touch - Labs CBC & Chem 7: 12/29/22 07:01 12/29/22 07:01 Labs: Abnormal Lab Results - Last 24 Hours (Table) 12/27/22 12/28/22 12/28/22 Range/Units 13:47 05:25 05:25 WBC 13.33 H (4.50-10.00) X 10*3/uL RBC 2.09 L (4.40-5.60) X 10*6/uL Hgb 6.5 H* (13.0-17.0) d/dL Hct 20.9 L (39.6-50.0) % MCV 100.0 H (80.0-97.0) FL MCHC 31.1 L (32.0-37.0) d/dL RDW 20.6 H (11.5-14.5) % MPV 9.3 L (9.5-12.2) FL Monocytes # (Manual) 1.47 H (0.20-1.00) X 10*3/uL Eosinophils # (Manual) 0 L (0.04-0.35) X 10*3/uL Basophils # (Manual) 0.67 H (0.00-0.10) X 10*3/uL NRBC/100 WBC Diff 0.11 H (0.00-0.01) X 10*3/uL Hypochromasia (manual) 2+ A Anisocytosis (manual) 2+ A Macrocytosis (manual) 2+ A Acanthocytes (Spur) 2+ A Carbon Dioxide 20.2 L (21.6-31.8) mmol/L Anion Gap 13.80 H (4.00-12.00) mmol/L BUN 61.6 H (9.0-27.0) mg/dL Creatinine 2.1 H (0.6-1.5) mg/dL Est GFR (CKD-EPI) 32 L (>=60) BUN/Creatinine Ratio 29.33 H (12.00-20.00) Ratio POC Glucose (mg/dL) (70-110) mg/dL Calcium 7.9 L (8.7-10.3) mg/dL Total Bilirubin <0.2 L (0.3-1.2) mg/dL C-Reactive Protein (0.00-0.80) mg/dL Total Protein 5.6 L (6.2-8.2) d/dL Albumin 3.4 L (3.8-4.9) d/dL Albumin/Globulin Ratio 1.55 L (1.60-3.17) Ratio Crossmatch See Detail 12/29/22 12/29/22 12/29/22 Range/Units 07:01 07:01 11:32 WBC 10.57 H (4.50-10.00) X 10*3/uL RBC 2.38 L (4.40-5.60) X 10*6/uL Hgb 7.3 L (13.0-17.0) d/dL Hct 23.4 L (39.6-50.0) % MCV 98.3 H (80.0-97.0) FL MCHC 31.2 L (32.0-37.0) d/dL RDW 20.8 H (11.5-14.5) % MPV 9.4 L (9.5-12.2) FL Monocytes # (Manual) (0.20-1.00) X 10*3/uL Eosinophils # (Manual) (0.04-0.35) X 10*3/uL Basophils # (Manual) (0.00-0.10) X 10*3/uL NRBC/100 WBC Diff 0.17 H (0.00-0.01) X 10*3/uL Hypochromasia (manual) Anisocytosis (manual) Macrocytosis (manual) Acanthocytes (Spur) Carbon Dioxide 19.7 L (21.6-31.8) mmol/L Anion Gap 12.30 H (4.00-12.00) mmol/L BUN 54.5 H (9.0-27.0) mg/dL Creatinine 2.0 H (0.6-1.5) mg/dL Est GFR (CKD-EPI) 34 L (>=60) BUN/Creatinine Ratio 27.25 H (12.00-20.00) Ratio POC Glucose (mg/dL) 117 H (70-110) mg/dL Calcium 8.2 L (8.7-10.3) mg/dL Total Bilirubin (0.3-1.2) mg/dL C-Reactive Protein 4.50 H (0.00-0.80) mg/dL Total Protein (6.2-8.2) d/dL Albumin (3.8-4.9) d/dL Albumin/Globulin Ratio (1.60-3.17) Ratio Crossmatch Microbiology - Last 24 Hours (Table) 12/26/22 12:00 Blood Culture - Preliminary Blood 12/26/22 12:15 Blood Culture - Preliminary Blood Assessment and Plan (1) Cellulitis of right lower extremity Current Visit: Yes Status: Acute Code(s): L03.115 - CELLULITIS OF RIGHT LOWER LIMB SNOMED Code(s): 558693679 (2) Leukocytosis Current Visit: Yes Status: Acute Code(s): D72.829 - ELEVATED WHITE BLOOD CELL COUNT, UNSPECIFIED SNOMED Code(s): 675170521 (3) Suprapatellar effusion of knee Current Visit: Yes Status: Acute Code(s): M25.469 - EFFUSION, UNSPECIFIED KNEE SNOMED Code(s): 209423324 Plan: 1patient was in the hospital increasing pain to the right knee this patient also with a right foot ankle area swelling and minimal redness concerning for c ellulitis and possible bursitis questionably septic patient not running any fever however he did have mild elevated white count, and did have elevated uric acid question of possible gouty arthritis versus advanced ostial arthritis patient has been seen by orthopedic recommending no aspiration 2patient did have leukocytosis and elevated pro-calcitonin concerning for mild cellulitis to the right lower extremity, 3-the patient remains to be afebrile, the patient white count has normalized culture has been negative, will continue with cefazolin and short course of Keflex on discharge Dictation was produced using [employer] dictation software. please excuse any grammatical, word or spelling errors. Time with Patient: Less than 30
--- NOTE | 2022-12-29 13:24 | P.PN ---
Subjective Progress Note Date: 12/29/22 77 years old male Presents because of right knee pain. Patient cannot sleep walk or function with his significant pain which he states was 10/10 also made on admission nonspecific. Patient denies history of trauma. Patient denies any other specific symptoms, no chest pain dyspnea. No other symptom. Patient denies smoking alcohol or illicit drugs Has leukocytosis 13.3, hemoglobin 7.4 Alk phos are normal. Creatinine 2.1 uric acid elevated at 15.6 Liver enzymes unremarkable. Venous Dopplers negative for DVT Right knee x-ray showing large suprapatellar bursa fluid collection. No definite acute fracture. Severe diffuse osteopenia with severe osteoarthritis 12/27/2022 Patient right knee pain is better today, right knee still looks swollen and somewhat warm. Right leg edema is improving. Suspicion for right lower extremity cellulitis is low. However patient To be covered with IV antibiotic There was suspicion of CHF. Her chest x-ray with elevated proBNP 83906. Echocardiogram showed preserved ejection fraction 55-60% with severe pulmonary hypertension. Patient currently off IV fluids. Uric acid was elevated significantly up to 15 suspicious for acute gout flareup because of elevated creatinine patient was started on prednisone 30 mg. 12/28 : Patient seen and evaluated bedside, continue to complain of right knee pain, range of motion limited CRP, pro-calcitonin minimally elevated. Continue IV antibiotics Noted to have anemia hemoglobin less than 7 >> 1 unit of packed RBC ordered 12/29 : Patient seen and evaluated bedside, right knee pain has improved, hemoglobin around 7.3, continue IV antibiotics while inpatient, upon discharge were transitioned to Keflex. Range of motion improved on right knee Objective - Vital Signs Vital signs: Vital Signs Temp 97.5 F L 12/29/22 06:57 Pulse 65 12/29/22 06:57 Resp 19 12/29/22 06:57 BP 100/60 12/29/22 06:57 Pulse Ox 94 L 12/29/22 06:57 FiO2 Intake & Output 12/28/22 12/29/22 12/29/22 18:59 06:59 18:59 Intake Total 1090 1050 Output Total 600 600 Balance 490 450 Weight 64.41 kg Intake: Intake, IV Titration 850 1050 Amount Sodium Chloride 0.9% 1, 800 1000 000 ml @ 100 mls/hr IV . Q10H [facility] Rx#:[id number] ceFAZolin 1,000 mg In 50 50 Sodium Chloride 0.9% 50 ml @ 100 mls/hr IVPB Q12HR [facility] Rx#:[id number] Oral 240 Blood Product 0 0 Rc Pheresis As-3 Unit 0 0 [id number] Output: Urine 600 600 Other: # Voids 1 4 # Bowel Movements 1 1 - Exam PHYSICAL EXAMINATION: GENERAL: The patient is alert and oriented x3, not in any acute distress. Well d eveloped, well nourished. Pale, ill appearance HEENT: Pupils are round and equally reacting to light. EOMI. No scleral icterus. No conjunctival pallor. Normocephalic, atraumatic. No pharyngeal erythema. No thyromegaly. CARDIOVASCULAR: S1 and S2 present. No murmurs, rubs, or gallops. PULMONARY: Chest is clear to auscultation, no wheezing or crackles. ABDOMEN: Soft, nontender, nondistended, normoactive bowel sounds. No palpable organomegaly. MUSCULOSKELETAL: Right knee joint swelling, range of motion limited, however improved EXTREMITIES: No cyanosis, clubbing, or pedal edema. NEUROLOGICAL: Gross neurological examination did not reveal any focal deficits. SKIN: No rashes. - Labs CBC & Chem 7: 12/29/22 07:01 12/29/22 07:01 Labs: Abnormal Lab Results - Last 24 Hours (Table) 12/27/22 12/28/22 12/28/22 Range/Units 13:47 05:25 05:25 WBC 13.33 H (4.50-10.00) X 10*3/uL RBC 2.09 L (4.40-5.60) X 10*6/uL Hgb 6.5 H* (13.0-17.0) d/dL Hct 20.9 L (39.6-50.0) % MCV 100.0 H (80.0-97.0) FL MCHC 31.1 L (32.0-37.0) d/dL RDW 20.6 H (11.5-14.5) % MPV 9.3 L (9.5-12.2) FL Monocytes # (Manual) 1.47 H (0.20-1.00) X 10*3/uL Eosinophils # (Manual) 0 L (0.04-0.35) X 10*3/uL Basophils # (Manual) 0.67 H (0.00-0.10) X 10*3/uL NRBC/100 WBC Diff 0.11 H (0.00-0.01) X 10*3/uL Hypochromasia (manual) 2+ A Anisocytosis (manual) 2+ A Macrocytosis (manual) 2+ A Acanthocytes (Spur) 2+ A Carbon Dioxide 20.2 L (21.6-31.8) mmol/L Anion Gap 13.80 H (4.00-12.00) mmol/L BUN 61.6 H (9.0-27.0) mg/dL Creatinine 2.1 H (0.6-1.5) mg/dL Est GFR (CKD-EPI) 32 L (>=60) BUN/Creatinine Ratio 29.33 H (12.00-20.00) Ratio POC Glucose (mg/dL) (70-110) mg/dL Calcium 7.9 L (8.7-10.3) mg/dL Total Bilirubin <0.2 L (0.3-1.2) mg/dL C-Reactive Protein (0.00-0.80) mg/dL Total Protein 5.6 L (6.2-8.2) d/dL Albumin 3.4 L (3.8-4.9) d/dL Albumin/Globulin Ratio 1.55 L (1.60-3.17) Ratio Crossmatch See Detail 12/29/22 12/29/22 12/29/22 Range/Units 07:01 07:01 11:32 WBC 10.57 H (4.50-10.00) X 10*3/uL RBC 2.38 L (4.40-5.60) X 10*6/uL Hgb 7.3 L (13.0-17.0) d/dL Hct 23.4 L (39.6-50.0) % MCV 98.3 H (80.0-97.0) FL MCHC 31.2 L (32.0-37.0) d/dL RDW 20.8 H (11.5-14.5) % MPV 9.4 L (9.5-12.2) FL Monocytes # (Manual) (0.20-1.00) X 10*3/uL Eosinophils # (Manual) (0.04-0.35) X 10*3/uL Basophils # (Manual) (0.00-0.10) X 10*3/uL NRBC/100 WBC Diff 0.17 H (0.00-0.01) X 10*3/uL Hypochromasia (manual) Anisocytosis (manual) Macrocytosis (manual) Acanthocytes (Spur) Carbon Dioxide 19.7 L (21.6-31.8) mmol/L Anion Gap 12.30 H (4.00-12.00) mmol/L BUN 54.5 H (9.0-27.0) mg/dL Creatinine 2.0 H (0.6-1.5) mg/dL Est GFR (CKD-EPI) 34 L (>=60) BUN/Creatinine Ratio 27.25 H (12.00-20.00) Ratio POC Glucose (mg/dL) 117 H (70-110) mg/dL Calcium 8.2 L (8.7-10.3) mg/dL Total Bilirubin (0.3-1.2) mg/dL C-Reactive Protein 4.50 H (0.00-0.80) mg/dL Total Protein (6.2-8.2) d/dL Albumin (3.8-4.9) d/dL Albumin/Globulin Ratio (1.60-3.17) Ratio Crossmatch Microbiology - Last 24 Hours (Table) 12/26/22 12:00 Blood Culture - Preliminary Blood 12/26/22 12:15 Blood Culture - Preliminary Blood Assessment and Plan Assessment: Assessment: Acute right inflammation arthritis Elevated uric acid Iron Deficiency anemia Severe pulmonary hypertension History of atrial fibrillation Plan: Continue with antibiotic, currently on cefazolin , upon discharge were transitioned to [facility] Infectious disease and orthopedic team consult Follow-up on pro-calcitonin CRP levels improving Eliquis on hold , secondary to anemia, patient refuses any gastrointestinal intervention including EGD and colonoscopy Nephrology following continue to monitor renal function, started on IV iron, continue Continue sotalol, monitor electrolytes
[2022-12-29 16:53] LABS: Glucose,Whole Blood 83 mg/dL (70-110)
[2022-12-29 21:15] LABS: Glucose,Whole Blood 132 mg/dL (70-110)
[2022-12-29] MEDS: traZODone HCL 100 MG TAB PO SCH (23:34)
[2022-12-29] MEDS: MELATONIN 3 MG TABLET PO SCH (23:34)
--- NOTE | 2022-12-30 00:05 | P.PN ---
Subjective Patient is seen for follow-up for chronic kidney disease. He was admitted with right knee pain. 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 Patient is here in [place] for the summer. Baseline renal function is not known at this time. Serum creatinine has been at 2.1-2.3 mg/dL. Hemoglobin was 5.9 g/dL. S/p PRBCs transfusion. Hb at 7.3 today. No significant complaints today. Patient reports good urine output. Right knee pain is better but persists. Objective - Vital Signs Vital signs: Vital Signs Temp 99.1 F 12/29/22 20:00 Pulse 65 12/29/22 20:00 Resp 16 12/29/22 20:00 BP 116/57 12/29/22 20:00 Pulse Ox 93 L 12/29/22 20:00 FiO2 Intake & Output 12/29/22 12/29/22 12/30/22 06:59 18:59 06:59 Intake Total 1050 Output Total 600 250 Balance 450 -250 Weight 64.41 kg Intake: Intake, IV Titration 1050 Amount Sodium Chloride 0.9% 1, 1000 000 ml @ 100 mls/hr IV . Q10H [facility] Rx#:[id number] ceFAZolin 1,000 mg In 50 Sodium Chloride 0.9% 50 ml @ 100 mls/hr IVPB Q12HR [facility] Rx#:[id number] Blood Product 0 Rc Pheresis As-3 Unit 0 [id number] Output: Urine 600 250 Other: # Voids 4 1 # Bowel Movements 1 - Exam Patient is awake, comfortable, no acute distress Examination of the heart S1 and S2 Examination of the lungs bilateral breath sounds are heard Abdomen is soft nontender Examination lower extremity shows no evidence of edema. Right knee is tender no edema noted. [employer]ING [employer]ING [employer]ER exam grossly intact - Labs CBC & Chem 7: 12/29/22 07:01 12/29/22 07:01 Labs: Abnormal Lab Results - Last 24 Hours (Table) 12/29/22 12/29/22 12/29/22 Range/Units 07:01 07: 07:01 WBC 10.57 H (4.50-10.00) X 10*3/uL RBC 2.38 L (4.40-5.60) X 10*6/uL Hgb 7.3 L (13.0-17.0) d/dL Hct 23.4 L (39.6-50.0) % MCV 98.3 H (80.0-97.0) FL MCHC 31.2 L (32.0-37.0) d/dL RDW 20.8 H (11.5-14.5) % MPV 9.4 L (9.5-12.2) FL NRBC/100 WBC Diff 0.17 H (0.00-0.01) X 10*3/uL Carbon Dioxide 19.7 L (21.6-31.8) mmol/L Anion Gap 12.30 H (4.00-12.00) mmol/L BUN 54.5 H (9.0-27.0) mg/dL Creatinine 2.0 H (0.6-1.5) mg/dL Est GFR (CKD-EPI) 34 L (>=60) BUN/Creatinine Ratio 27.25 H (12.00-20.00) Ratio POC Glucose (mg/dL) (70-110) mg/dL Calcium 8.2 L (8.7-10.3) mg/dL C-Reactive Protein 4.50 H (0.00-0.80) mg/dL Procalcitonin 0.48 H (0.02-0.09) ng/mL 12/29/22 12/29/22 Range/Units 11:32 21:14 WBC (4.50-10.00) X 10*3/uL RBC (4.40-5.60) X 10*6/uL Hgb (13.0-17.0) d/dL Hct (39.6-50.0) % MCV (80.0-97.0) FL MCHC (32.0-37.0) d/dL RDW (11.5-14.5) % MPV (9.5-12.2) FL NRBC/100 WBC Diff (0.00-0.01) X 10*3/uL Carbon Dioxide (21.6-31.8) mmol/L Anion Gap (4.00-12.00) mmol/L BUN (9.0-27.0) mg/dL Creatinine (0.6-1.5) mg/dL Est GFR (CKD-EPI) (>=60) BUN/Creatinine Ratio (12.00-20.00) Ratio POC Glucose (mg/dL) 117 H 132 H (70-110) mg/dL Calcium (8.7-10.3) mg/dL C-Reactive Protein (0.00-0.80) mg/dL Procalcitonin (0.02-0.09) ng/mL Microbiology - Last 24 Hours (Table) 12/26/22 12:00 Blood Culture - Preliminary Blood 12/26/22 12:15 Blood Culture - Preliminary Blood Assessment and Plan Assessment: 1. Chronic kidney disease with unknown baseline renal function. Etiology is likely nephrosclerosis. UA shows 1+ protein otherwise benign. Ultrasound shows bilateral renal cysts some of them have septations [place] at this will need further evaluation down the road. 2. Possible acute kidney injury secondary to severe anemia. Repeat hemoglobin was 5.9 g/dL. 3. Severe anemia with no active bleeding noted. Severe iron deficiency noted with iron saturation at 2.4% 4. Hyperuricemia with history of gout. Add Uloric once patient has received steroids. 5. Right knee pain 6. Severe anemia, possible GI bleed. No active bleeding noted. Severe iron deficiency, being replaced with Iv iron. Plan: Add IV iron Continue with antibiotics Continue Aranesp Repeat labs in am Continue with allopurinol
[2022-12-30 06:06] LABS: Glucose,Whole Blood 108 mg/dL (70-110)
[2022-12-30] MEDS: INSULIN ASPART (NovoLOG) 100 UNIT/ML VIAL SQ SCH ×2 (06:15→13:06)
[2022-12-30] MEDS: LEVOTHYROXINE 125 MCG TAB PO SCH (06:15)
[2022-12-30 06:55] VITALS: BP 102/47; PULSE 60; RESP 18; TEMP 97.6
[2022-12-30] MEDS: DAPAGLIFLOZIN PROPANEDIOL 10 MG TABLET PO SCH (09:03)
[2022-12-30] MEDS: allopurinoL 100 MG TAB PO SCH (09:03)
[2022-12-30 09:12] LABS: HCT 23.6 % (39.6-50.0); HGB 7.3 d/dL (13.0-17.0); MCH 31.1 pg (27.0-32.0); MCHC 30.9 d/dL (32.0-37.0); MCV 100.4 FL (80.0-97.0); Mean Platelet Volume 9.5 FL (9.5-12.2); NRBC Per 100 WBC 0.28 X 10*3/uL (0.00-0.01); Platelet Count 398 X 10*3/uL (140-440); RBC 2.35 X 10*6/uL (4.40-5.60); RDW 20.5 % (11.5-14.5); WBC 10.55 X 10*3/uL (4.50-10.00)
[2022-12-30 09:23] LABS: BUN/Creat Ratio 25.76 Ratio (12.00-20.00); Blood Urea Nitrogen 43.8 mg/dL (9.0-27.0); Calcium 8.4 mg/dL (8.7-10.3); Carbon Dioxide 20.3 mmol/L (21.6-31.8); Chloride 109 mmol/L (96-109); Glucose 88 mg/dL (70-110); Potassium 4.8 mmol/L (3.5-5.5); Sodium 139 mmol/L (135-145)
[2022-12-30] MEDS: PANTOPRAZOLE 40 MG/10 ML VIAL IVP SCH (10:24)
[2022-12-30] MEDS: SOTALOL 80 MG TAB PO SCH (10:24)
[2022-12-30] MEDS: SILDENAFIL 20 MG TAB PO SCH (10:27)
[2022-12-30] MEDS: MIDODRINE 5 MG TAB PO SCH (10:27)
[2022-12-30] MEDS: SODIUM FERRIC GLUCONAT-SUCROSE 125 MG in SODIUM CHLORIDE 0.9% 100 ML IVPB SCH (10:28)
[2022-12-30] MEDS: DICLOFENAC SODIUM GEL 100 GM TUBE TOPICAL SCH ×2 (10:29→13:07)
[2022-12-30] MEDS: HYDROcodone/APAP 5-325MG 1 EACH TAB PO PRN (10:36)
[2022-12-30 11:37] LABS: Glucose,Whole Blood 109 mg/dL (70-110)
--- NOTE | 2022-12-30 12:21 | P.PN ---
Subjective Patient is seen for follow-up for chronic kidney disease. He was admitted with right knee pain. 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 Patient is here in [place] for the summer. Baseline renal function is not known at this time. Serum creatinine has been at 2.1-2.3 mg/dL. Hemoglobin was 5.9 g/dL. S/p PRBCs transfusion. Hb at 7.3 today. Receiving IV iron for severe iron deficiency No significant complaints today. Patient reports good urine output. Right knee pain is better but persists. Objective - Vital Signs Vital signs: Vital Signs Temp 97.6 F 12/30/22 06:54 Pulse 60 12/30/22 06:54 Resp 18 12/30/22 06:54 BP 102/47 12/30/22 06:54 Pulse Ox 98 12/30/22 06:54 FiO2 Intake & Output 12/29/22 12/30/22 12/30/22 18:59 06:59 18:59 Output Total 250 600 Balance -250 -600 Weight 64.41 kg Output: Urine 250 600 Other: Voiding Method Toilet # Voids 1 - Exam Patient is awake, comfortable, no acute distress Examination of the heart S1 and S2 Examination of the lungs bilateral breath sounds are heard Abdomen is soft nontender Examination lower extremity shows no evidence of edema. Right knee is tender no edema noted. RN CHILD exam grossly intact - Labs CBC & Chem 7: 12/30/22 05:20 12/30/22 05:20 Labs: Abnormal Lab Results - Last 24 Hours (Table) 12/29/22 12/29/22 12/30/22 Range/Units 07:01 21:14 05:20 WBC 10.55 H (4.50-10.00) X 10*3/uL RBC 2.35 L (4.40-5.60) X 10*6/uL Hgb 7.3 L (13.0-17.0) d/dL Hct 23.6 L (39.6-50.0) % MCV 100.4 H (80.0-97.0) FL MCHC 30.9 L (32.0-37.0) d/dL RDW 20.5 H (11.5-14.5) % NRBC/100 WBC Diff 0.28 H (0.00-0.01) X 10*3/uL Carbon Dioxide (21.6-31.8) mmol/L BUN (9.0-27.0) mg/dL Creatinine (0.6-1.5) mg/dL Est GFR (CKD-EPI) (>=60) BUN/Creatinine Ratio (12.00-20.00) Ratio POC Glucose (mg/dL) 132 H (70-110) mg/dL Calcium (8.7-10.3) mg/dL C-Reactive Protein (0.00-0.80) mg/dL Procalcitonin 0.48 H (0.02-0.09) ng/mL 12/30/22 Range/Units 05:20 WBC (4.50-10.00) X 10*3/uL RBC (4.40-5.60) X 10*6/uL Hgb (13.0-17.0) d/dL Hct (39.6-50.0) % MCV (80.0-97.0) FL MCHC (32.0-37.0) d/dL RDW (11.5-14.5) % NRBC/100 WBC Diff (0.00-0.01) X 10*3/uL Carbon Dioxide 20.3 L (21.6-31.8) mmol/L BUN 43.8 H (9.0-27.0) mg/dL Creatinine 1.7 H (0.6-1.5) mg/dL Est GFR (CKD-EPI) 41 L (>=60) BUN/Creatinine Ratio 25.76 H (12.00-20.00) Ratio POC Glucose (mg/dL) (70-110) mg/dL Calcium 8.4 L (8.7-10.3) mg/dL C-Reactive Protein 4.10 H (0.00-0.80) mg/dL Procalcitonin (0.02-0.09) ng/mL Microbiology - Last 24 Hours (Table) 12/26/22 12:00 Blood Culture - Preliminary Blood 12/26/22 12:15 Blood Culture - Preliminary Blood Assessment and Plan Assessment: 1. Chronic kidney disease with unknown baseline renal function. Etiology is likely nephrosclerosis. UA shows 1+ protein otherwise benign. Ultrasound shows bilateral renal cysts some of them have septations [place] at this will need further evaluation down the road. 2. Possible acute kidney injury secondary to severe anemia. Repeat hemoglobin was 5.9 g/dL. 3. Severe anemia with no active bleeding noted. Severe iron deficiency noted with iron saturation at 2.4% 4. Hyperuricemia with history of gout. Add Uloric once patient has received steroids. 5. Right knee pain 6. Severe anemia, possible GI bleed. No active bleeding noted. Severe iron deficiency, being replaced with Iv iron. Plan: Continue IV iron Continue with antibiotics Continue Aranesp Repeat labs in am Continue with allopurinol
--- NOTE | 2022-12-30 13:08 | P.DS ---
Providers Date of admission: 12/26/22 11:45 Expected date of discharge: 12/30/22 Attending physician: Pal Silvestre MD Consults: 12/26/22 17:42 Consult Physician Routine Consulting Provider: Wiley Mahan Consult Reason/Comments: RLE cellulitis Do you want consulting provider notified?: Yes 12/26/22 23:50 Consult Physician Urgent Consulting Provider: Louise Rodriguez Consult Reason/Comments: martine Do you want consulting provider notified?: Yes, Notify in am Primary care physician: Physician Nonsta Hospital Course: 77 years old male Presents because of right knee pain. Patient cannot sleep walk or function with his significant pain which he states was 10/10 also made on admission nonspecific. Patient denies history of trauma. Patient denies any other specific symptoms, no chest pain dyspnea. No other symptom. Patient denies smoking alcohol or illicit drugs Has leukocytosis 13.3, hemoglobin 7.4 Alk phos are normal. Creatinine 2.1 uric acid elevated at 15.6 Liver enzymes unremarkable. Venous Dopplers negative for DVT Right knee x-ray showing large suprapatellar bursa fluid collection. No definite acute fracture. Severe diffuse osteopenia with severe osteoarthritis 12/27/2022 Patient right knee pain is better today, right knee still looks swollen and somewhat warm. Right leg edema is improving. Suspicion for right lower extremity cellulitis is low. However patient To be covered with IV antibiotic There was suspicion of CHF. Her chest x-ray with elevated proBNP 30582. Echocardiogram showed preserved ejection fraction 55-60% with severe pulmonary hypertension. Patient currently off IV fluids. Uric acid was elevated significantly up to 15 suspicious for acute gout flareup because of elevated creatinine patient was started on prednisone 30 mg. 12/28 : Patient seen and evaluated bedside, continue to complain of right knee pain, range of motion limited CRP, pro-calcitonin minimally elevated. Continue IV antibiotics Noted to have anemia hemoglobin less than 7 >> 1 unit of packed RBC ordered 12/29 : Patient seen and evaluated bedside, right knee pain has improved, hemoglobin around 7.3, continue IV antibiotics while inpatient, upon discharge were transitioned to ceftin . Range of motion improved on right knee 12/30: Range of motion improved and right knee patient feels better, hemoglobin remained stable. Patient refusing any intervention for her anemia discharged on ferrous sulfate, Eliquis resume for history of A. fib. Topical Voltaren gel given. As needed. Given, prescription for allopurinol provided PHYSICAL EXAMINATION: GENERAL: The patient is alert and oriented x3, not in any acute distress. Well developed, well nourished. Pale, ill appearance HEENT: Pupils are round and equally reacting to light. EOMI. No scleral icterus. No conjunctival pallor. Normocephalic, atraumatic. No pharyngeal erythema. No thyromegaly. CARDIOVASCULAR: S1 and S2 present. No murmurs, rubs, or gallops. PULMONARY: Chest is clear to auscultation, no wheezing or crackles. ABDOMEN: Soft, nontender, nondistended, normoactive bowel sounds. No palpable organomegaly. MUSCULOSKELETAL: Right knee joint swelling, range of motion limited, however improved EXTREMITIES: No cyanosis, clubbing, or pedal edema. NEUROLOGICAL: Gross neurological examination did not reveal any focal deficits. SKIN: No rashes. Assessment: Acute right inflammation arthritis Elevated uric acid secondary to gout Iron Deficiency anemia Chronic anemia follows up with hematology in [place] Severe pulmonary hypertension History of atrial fibrillation Plan: Continue with antibiotic, currently on cefazolin , upon discharge were transitio debra to [facility] Infectious disease and orthopedic team consult, outpatient follow-up with orthopedic Follow-up on pro-calcitonin CRP levels improving Eliquis on hold while inpatient however resumed upon discharge , secondary to anemia, patient refuses any gastrointestinal intervention including EGD and colonoscopy Nephrology following continue to monitor renal function, started on IV iron, continue ferrous sulfate upon discharge Continue sotalol, for history of atrial fibrillation In regards to gout patient given prescription for ferrous sulfate Patient Condition at Discharge: Fair Plan - Discharge Summary Discharge Rx Participant: No New Discharge Prescriptions: New cefUROXime axetiL [Ceftin] 500 mg PO BID 3 Days #6 tab Acetaminophen Tab [Tylenol] 650 mg PO Q6HR PRN #30 tab PRN Reason: Mild Pain Or Fever > 100.5 Diclofenac Sodium Gel [Voltaren Gel] 4 gm TOPICAL QID #1 each Ferrous Sulfate [Feosol] 325 mg PO DAILY #30 tab HYDROcodone/APAP 5-325MG [[place] 5-325] 1 each PO Q6HR PRN 3 Days #12 tab PRN Reason: Moderate Pain (Scale 4 To 6) allopurinoL [Zyloprim] 100 mg PO DAILY #30 tab Continue Sotalol [Betapace] 40 mg PO BID@1100,2300 Torsemide [Demadex] 40 mg PO BID@1100,2300 Midodrine HCl [ProAmatine] 10 mg PO TID@0030,1000,1800 Sildenafil Citrate 20 mg PO TID@0030,1000,1800 Apixaban [Eliquis] 2.5 mg PO BID@1100,2300 Dapagliflozin Propanediol [Farxiga] 10 mg PO DAILY Melatonin 3 mg PO HS@0030 Levothyroxine Sodium [Synthroid] 125 mcg PO QAM traZODone HCL 100 mg PO HS@0030 Discontinued Amoxic-Pot Clav 500-125 mg [Augmentin 500-125 mg] 1 tab PO Q12HR Discharge Medication List Apixaban [Eliquis] 2.5 mg PO BID@1100,2300 12/26/22 [History] Dapagliflozin Propanediol [Farxiga] 10 mg PO DAILY 12/26/22 [History] Levothyroxine Sodium [Synthroid] 125 mcg PO QAM 12/26/22 [History] Melatonin 3 mg PO HS@0030 12/26/22 [History] Midodrine HCl [ProAmatine] 10 mg PO TID@0030,1000,1800 12/26/22 [History] Sildenafil Citrate 20 mg PO TID@0030,1000,1800 12/26/22 [History] Sotalol [Betapace] 40 mg PO BID@1100,2300 12/26/22 [History] Torsemide [Demadex] 40 mg PO BID@1100,2300 12/26/22 [History] traZODone HCL 100 mg PO HS@0030 12/26/22 [History] Acetaminophen Tab [Tylenol] 650 mg PO Q6HR PRN #30 tab 12/30/22 [Rx] Diclofenac Sodium Gel [Voltaren Gel] 4 gm TOPICAL QID #1 each 12/30/22 [Rx] Ferrous Sulfate [Feosol] 325 mg PO DAILY #30 tab 12/30/22 [Rx] HYDROcodone/APAP 5-325MG [[place] 5-325] 1 each PO Q6HR PRN 3 Days #12 tab 12/30/22 [Rx] allopurinoL [Zyloprim] 100 mg PO DAILY #30 tab 12/30/22 [Rx] cefUROXime axetiL [Ceftin] 500 mg PO BID 3 Days #6 tab 12/30/22 [Rx] Follow up Appointment(s)/Referral(s): None,Stated [REFERRING] - 1-2 days Dustin Oliva DO [Doctor of Osteopathic Medicine] - 1 Week Discharge Disposition: HOME SELF-CARE
[2022-12-30] MEDS: SODIUM CHLORIDE 0.9% 1,000 ML IV SCH (13:36)
[2023-01-01 14:11] LABS: Band Neutrophils % 7 %; Metamyelocytes % 4 % (0-0); Myelocytes % 5 % (0-0); Neutrophils % (M) 62 %
[2023-01-01 14:12] LABS: Anisocytosis (M) 2+; Macrocytosis (M) 2+
[2023-01-01 14:13] LABS: Neutrophils # (M) 9.18 (2.00-8.90)
[2023-01-01 14:14] LABS: Lymphocytes # (M) 1.7303 (0.90-5.00)
[2023-01-01 14:15] LABS: Basophils # (M) 0.2662 (0.00-0.10); Eosinophils # (M) 0.1331 (0.04-0.35); Monocytes # (M) 0.7986 (0.20-1.00)
== END 2022-12-30 14:21 | disposition home or self-care (01) | DRG 602 ==
LOC: EC 09:11 → 4SSUR 11:45
PROVIDERS: ADMIT Internal Medicine; ATTEND Internal Medicine
PROC: 30233N1 Transfusion of Nonautologous Red Blood Cells into Peripheral Vein, Percutaneous Approach (ICD-10-PCS; principal; 2022-12-27)
DX: L03.115 Cellulitis of right lower limb (principal); E43 Unspecified severe protein-calorie malnutrition; N17.9 Acute kidney failure, unspecified; Z68.1 Body mass index [BMI] 19.9 or less, adult; I13.0 Hypertensive heart and chronic kidney disease with heart failure and stage 1 through stage 4 chronic kidney disease, or unspecified chronic kidney disease; I50.32 Chronic diastolic (congestive) heart failure; K92.2 Gastrointestinal hemorrhage, unspecified; I31.39 Other pericardial effusion (noninflammatory); D50.0 Iron deficiency anemia secondary to blood loss (chronic); E03.9 Hypothyroidism, unspecified; N18.9 Chronic kidney disease, unspecified; M17.11 Unilateral primary osteoarthritis, right knee; D64.9 Anemia, unspecified; M10.9 Gout, unspecified; D50.9 Iron deficiency anemia, unspecified; I48.91 Unspecified atrial fibrillation; E11.22 Type 2 diabetes mellitus with diabetic chronic kidney disease; N28.1 Cyst of kidney, acquired; I25.10 Atherosclerotic heart disease of native coronary artery without angina pectoris; M19.90 Unspecified osteoarthritis, unspecified site; D69.6 Thrombocytopenia, unspecified; Z92.21 Personal history of antineoplastic chemotherapy; Z92.3 Personal history of irradiation; M85.861 Other specified disorders of bone density and structure, right lower leg; I27.20 Pulmonary hypertension, unspecified; I08.1 Rheumatic disorders of both mitral and tricuspid valves; Z79.890 Hormone replacement therapy; Z79.01 Long term (current) use of anticoagulants; Z79.84 Long term (current) use of oral hypoglycemic drugs; Z79.899 Other long term (current) drug therapy; Z85.810 Personal history of malignant neoplasm of tongue; Z87.891 Personal history of nicotine dependence; Z95.0 Presence of cardiac pacemaker; Z77.098 Contact with and (suspected) exposure to other hazardous, chiefly nonmedicinal, chemicals
CPT/HCPCS: 36415; 71046; 76770; 80048; 80053; 80076; 81001; 82607; 82728; 82746; 83036; 83540; 83550; 83605; 83735; 83880; 84145; 84550; 85025; 85027; 85610; 86140; 86850; 86900; 86901; 86920; 87040; 93306; 96365; 96366; 96375; 99285